=== PATIENT | female | born 1995 | race Two or more races ===

== ENCOUNTER 2024-10-18 00:32 | Emergency (ER) | payer SELFPAY ==
[2024-10-18 00:33] VITALS: BMI 45.3
[2024-10-18 00:39] VITALS: BP 136/74; PULSE 92; RESP 18; TEMP 37.2; O2SAT 99
--- NOTE | 2024-10-18 00:54 | XR_ITS ---
Examination: Complete OB ultrasound, less than 14 weeks, transabdominal Date and time of exam: October 18, 2024 0229 hrs. Indications: Pelvic cramping beginning today early by history Technique: Obstetrical ultrasound images less than 14 weeks performed via transabdominal imaging Findings: Uterus 10.7 x 4.8 x 4.6 cm anteverted Endometrial stripe 0.4 cm No uterine mass or intrauterine gestation Ovaries obscured by bowel gas Impression: Limited study No uterine mass or intrauterine gestation, recommend short-term follow-up transvaginal pelvic sonography as clinically warranted
--- NOTE | 2024-10-18 00:55 | PD.EDRME ---
Rapid Medical Screening Exam RME Arrival date/time: 10/18/24 00:32 28-year-old female 2 para 1 presents emergency department approximately 5 weeks presents emergency department complaining of pelvic cramping that started today. Chief Complaint: Abdominal Pain Time Seen by Provider: 10/18/24 00:44 Vital signs: Vital Signs Temperature 98.9 F 10/18/24 00:39 Pulse Rate 92 10/18/24 00:39 Respiratory Rate 18 10/18/24 00:39 Blood Pressure 136/74 H 10/18/24 00:39 Pulse Oximetry (%) 99 10/18/24 00:39 Oxygen Delivery Method Room Air 10/18/24 00:39 Vital signs reviewed by provider: Yes
[2024-10-18 01:17] LABS: Collection Type, Urine Clean Catch
[2024-10-18] MEDS: ONDANSETRON ODT 4 MG TABRAP PO (01:22)
[2024-10-18 01:40] LABS: Basophils % (Auto) 0 % (0-2.5); Eosinophils # (Auto) 0.1 Thou/mm3 (0.0-0.5); Eosinophils % (Auto) 1 % (0-10); Hematocrit 37.1 % (36.0-46.0); Immature Granulocytes % (Auto) 1 % (0-0); Immature Granulocytes Auto 0.07 Thou/mm3 (0.00-0.00); Lymphocytes # (Auto) 3.1 Thou/mm3 (1.0-4.8); Lymphocytes % (Auto) 30 % (10-50); Mean Corpuscular HGB Conc 32.3 g/dl (31.0-37.0); Mean Corpuscular Hemoglobin 26.5 pg (25.0-35.0); Mean Corpuscular Volume 82 fL (80-100); Monocytes # (Auto) 0.5 Thou/mm3 (0.0-0.8); Monocytes % (Auto) 5 % (0-12); Neutrophils # (Auto) 6.3 Thou/mm3 (1.8-7.7); Neutrophils % (Auto) 62 % (37-80); Nucleated Red Blood Cell % 0 /100 WBC (0); Platelet Count 324 Thou/mm3 (140-440); RDW Standard Deviation 44.6 fL (36.4-46.3); Red Blood Count 4.52 Miln/mm3 (4.00-5.20); White Blood Count 10.1 Thou/mm3 (3.6-11.0)
[2024-10-18 01:54] LABS: Amorphous Crystals,Urine Present (Absent); Bacteria,Urine 1+; Bilirubin,Urine Negative (Negative); Blood,Urine Negative (Negative); Clarity,Urine Turbid (Clear/Hazy); Color,Urine Yellow (Lt Yel-Yel); Culture Indicated,Urine Contaminated; Glucose, Urine Negative (Negative); Ketones,Urine Negative (Negative); Leukocyte Esterase,Urine Negative (Negative); Nitrite,Urine Negative (Negative); PH,Urine 6.5 (5.0-7.0); Protein,Urine Trace (Neg - Trace); RBC,Urine 7 /hpf (0-3); Specific Gravity,Urine 1.028 (1.001-1.035); Squamous Epithelial Cell,Urine 13 /hpf (0-5); WBC,Urine 2 /hpf (0-5)
[2024-10-18 01:56] LABS: Alanine Aminotransferase 68 U/L (10-49); Albumin, Serum 4.6 gm/dL (3.5-5.0); Albumin/Globulin Ratio 1.6 (1.2-2.2); Alkaline Phosphatase 99 U/L (46-116); Anion Gap 9 (7-16); Aspartate Amino Transferase 38 U/L (0-34); BUN/Creatinine Ratio 22 Ratio (12-20); Bilirubin,Total 0.4 mg/dL (0.3-1.2); Blood Urea Nitrogen 13 mg/dL (9-23); Calcium 9.3 mg/dL (8.3-10.6); Calcium (Corrected) 9.3 mg/dL (8.5-10.1); Carbon Dioxide 24.3 mMol/L (20.0-31.0); Chloride 105 mMol/L (98-107); Creatinine (Component) 0.6 mg/dL (0.6-1.3); Globulin 2.9 gm/dL (2.3-3.5); Glucose 98 mg/dL (74-106); Osmolality,Calculated 275 (275-295); Potassium 3.6 mMol/L (3.4-5.1); Sodium 138 mMol/L (136-145); Total Protein 7.5 gm/dL (5.7-8.2); eGFR > 60 See Note
[2024-10-18 02:08] LABS: Beta HCG,Quantitative 2080 mIU/mL (<5.0)
--- NOTE | 2024-10-18 03:21 | EDNOTE_ITS ---
<Statement entered by Dory Hines MD - 10/18/24 22:04> As co-signing physician, I was present and available for consult prn. I concur with the plan and care as documented by the midlevel provider. ED Abdominal Pain RME/HPI General Chief Complaint: Abdominal Pain Stated complaint: ABD CRAMPING Time seen by provider: 10/18/24 00:44 Arrival date/time: 10/18/24 00:32 28-year-old female 2 para 1 presents emergency department approximately 5 weeks presents emergency department complaining of pelvic cramping that started today. Source: patient Mode of arrival: ambulatory Limitations: no limitations RME / HPI RME / HPI narrative: 10/18/24 00:32 28-year-old female 2 para 1 presents emergency department approximately 5 weeks presents emergency department complaining of pelvic cramping that started today. Related Data Previous Rx's ?Medication ?Instructions ?Recorded acetaminophen 500 mg tablet 1,000 mg (2 x 500 mg) PO QID PRN 08/06/20 (Tylenol Extra Strength) pain #30 tabs ibuprofen 600 mg tablet 600 mg PO Q6H #30 tabs 08/06/20 Allergies Allergy/AdvReac Type Severity Reaction Status Date / Time No Known Allergies Allergy Verified 10/18/24 00:36 Review of Systems Review of Systems Systems Reviewed: All systems reviewed, normal except as documented Constitutional Constitutional: Reports system reviewed and no additional complaints, except as documented, Denies body ache(s), Denies chills and Denies fever(s) Eyes Eyes: Reports system reviewed and no additional complaints, except as documented and Denies change in vision ENT Ears, Nose, Mouth, and Throat: Reports system reviewed and no additional complaints, except as documented, Denies disequilibrium, Denies dizziness, Denies sore throat and Denies vertigo Cardiovascular Cardiovascular: Reports system reviewed and no additional complaints, except as documented, Denies chest pain and Denies dyspnea Respiratory Respiratory: Reports system reviewed and no additional complaints, except as documented, Denies chest congestion, Denies cough and Denies dyspnea Gastrointestinal Gastrointestinal: Reports system reviewed and no additional complaints, except as documented, Reports abdominal pain, Denies nausea and Denies vomiting Genitourinary Genitourinary: Reports pelvic pain Musculoskeletal Musculoskeletal: Reports system reviewed and no additional complaints, except as documented, Denies abnormal gait and Denies arthralgias Integumentary/Breasts Skin/Breast: Reports system reviewed and no additional complaints, except as documented, Denies erythema, Denies rash and Denies wounds Neurologic Neurologic: Reports system reviewed and no additional complaints, except as documented, Denies abnormal gait, Denies disequilibrium, Denies dizziness and Denies vertigo Past Medical History Past Medical History NEUROLOGIC: Negative Neurological Disorders CARDIAC: Positive Hypertension; Negative Cardiac Disorders or Congestive Heart Failure RESPIRATORY: Negative Chronic Obstructive Pulmonary Disease (COPD) or Asthma GASTROINTESTINAL: Positive Gall Bladder Disease and Obesity; Negative Gastrointestinal Disorders GENITOURINARY: Positive Genitourinary Disorders; Negative Renal Disease REPRODUCTIVE: Positive Previous Pregnancies MUSCULOSKELETAL: Negative Musculoskeletal Disorders ENDOCRINE: Negative Endocrine Disorders, Diabetes Mellitus Type 1 or Diabetes Mellitus Type 2 HEMATOLOGIC: Positive Anemia; Negative Blood Disorders or Sickle Cell Disease PSYCHO/SOCIAL: Positive Depression OTHER HISTORY: Negative Autoimmune Disease, Human Immunodeficiency Virus (HIV), Chicken Pox, Measles, Mumps, Rubella ([place] Measles), Pertussis or Clostridium Difficile Family History FAMILY HISTORY: Positive Family Psychiatric Problems; Negative Family Respiratory Disorders, Family Cardiac Disorders, Family Gastrointestinal Problems, Family Cancer, Family Surgery or Family Anesthesia Reaction Surgical History SURGICAL: Negative Section Social History SMOKING STATUS: Never smoker SECOND HAND EXPOSURE: No ED Exam General Limitations: Present no limitations General appearance: Present alert and in no apparent distress Head Head exam: Present atraumatic Eye Eye exam: Present normal appearance, PERRL and EOMI ENT ENT exam: Present normal exam, normal oropharynx and mucous membranes moist Neck Neck exam: Present normal inspection, full ROM and trachea midline Chest Chest inspection: Present normal inspection and symmetric chest wall rise Respiratory Respiratory exam: Present normal lung sounds bilaterally Cardiovascular Cardiovascular exam: Present regular rate, normal rhythm and normal heart sounds Abdominal Exam Abdominal exam: Present soft and normal bowel sounds; Absent tenderness Extremities Exam Extremities exam: Present normal inspection and full ROM Back Exam Back exam: Present normal inspection and full ROM Neurological Exam Neurological exam: Present alert, oriented X3 and CN II-XII intact Psychiatric Psychiatric exam: Present normal affect and normal mood Skin Skin exam: Present warm, dry, intact and normal color Course Quality Measures none Orders Category Date Time Status US OB <= 14 weeks fetus Stat Exams 10/18/24 00:54 Ordered ABO/RH Type Stat Lab 10/18/24 01:24 Completed Beta HCG,Quantitative Stat Lab 10/18/24 01:24 Completed CBC Stat Lab 10/18/24 01:24 Completed CMP [Comprehensive Metabolic Panel] Stat Lab 10/18/24 01:24 Completed Urinalysis, C/S if Indicated Stat Lab 10/18/24 01:05 Completed Ondansetron Odt [Zofran Odt] Med 10/18/24 01:12 Discontinued 4 mg PO X1 ONE Vital Signs Vital signs: Vital Signs Temperature 98.9 F 10/18/24 00:39 Pulse Rate 92 10/18/24 00:39 Respiratory Rate 18 10/18/24 00:39 Blood Pressure 136/74 H 10/18/24 00:39 Pulse Oximetry (%) 99 10/18/24 00:39 Oxygen Delivery Method Room Air 10/18/24 00:39 99% room air within normal limits Abdominal Pain MDM MDM Narrative MDM Narrative:: 28-year-old female 2 para 1 presents emergency department approximately 5 weeks presents emergency department complaining of pelvic cramping t hat started today. CBC was unremarkable for any leukocytosis. CMP was unremarkable for any elevated LFTs or gross electrolyte abnormalities. Beta-hCG 2080. Ultrasound unable to visualize intrauterine gestation but may be too early. Patient appears nontoxic and hemodynamically stable. Patient's abdomen is soft and nontender. Patient discharged instructed to follow-up with [facility] for repeat ultrasound and trend of beta-hCG levels. Instructed to return to emergency department for any worsening symptoms or as needed. Patient data External records reviewed:: [facility] previous records Clinical information provided by:: patient Social determinants that could affect healthcare access:: none Patient has the following chronic illnesses:: None How is presenting disease/condition affected by chronic disease/condition?: no chronic disease Evaluation data The following diagnostics were reviewed and interpreted by me:: lab results and radiology exam(s) Lab and/or radiology exams considered but not ordered:: Ordered Interpretation Summary: Interpreted by me Medications / Prescriptions Medications or Prescriptions considered but not ordered:: Ordered Medication administrations:: Medication Administration History Discontinued Medications Ondansetron HCl (Ondansetron Odt 4 Mg Tabrap) 4 mg PO X1 ONE; Protocol Stop: 10/18/24 01:13 Last Admin: 10/18/24 01:22 Dose: 4 mg Documented By: Given Consultations Consultation(s) initiated? (list below): No Diagnosis Differential diagnosis abdominal pain: abdominal pain, constipation, gastroenteritis and other (Miscarriage, ovarian torsion, ectopic ) Most likely diagnosis given after review of the tests above:: Abdominal pain during in first trimester Admission Indicated Admission indicated?: not indicated Admission Request Was there a request for admission?: No Disposition Plan Disposition Plan: Discharge Discharge Attestation Discharge Attestation: The patient and all family members were given an opportunity to ask questions and understood the discharge instructions. Discharge instructions specifically effects, indications for sooner follow up or return to the emergency department, and the expected course of current diagnosis. Patient condition: Stable Discharge Plan Plan Patient Disposition: HOME (Self Care) Disposition Comment: Stable Prescriptions/Referrals Prescriptions/Med Rec: No Action acetaminophen [Tylenol Extra Strength] 500 mg tablet 1,000 mg PO QID PRN (Reason: pain) Qty: 30 0RF ibuprofen 600 mg tablet 600 mg PO Q6H Qty: 30 0RF Referrals: No Primary/Family,Physician [Primary Care Provider] - In 1 week Problem List Clinical Impression: Abdominal pain during in first trimester Patient/Caregiver Discharge Instructions Education Materials: Abdominal Pain, ED Abdominal Pain Unkn Cause Fem Additional Instructions: Take [id number] Tylenol as needed for pain. Follow-up with [facility] in 24 to 48 hours. Return to emergency department for any worsening symptoms or as needed. Print Language: Yi Stand Alone Forms: Viviane Award Info., Patient Portal Info Letter KERRY/NGUYEN Supervising Physician KERRY/NGUYEN Supervising Physician: Dr. Hines
[2024-10-18 03:41] VITALS: RESP 18
--- NOTE | 2024-10-18 04:32 | PRELIM_ITS ---
Pelvic ultrasound (transabdominal and transvaginal). October 18, 2024 at 0229 hours Clinical history : Early viability.Technique: Real-time, grayscale, transabdominal and transvaginal pe lvic ultrasound was performed using Duplex scanning including arterial inflow, venous outflow, color and spectral Doppler.Comparison: No prior study is available for comparison. Findings: Uterus is 10.7 x 4.8 x 4.6 cm. The ovaries are not identified. Endometrium is 4 mm thick. No free fluid. No intra o r extrauterine gestational sac is identified. No pelvic cyst or mass is seen.Impression: 1. Limited b y transabdominal technique. Consider further evaluation with transvaginal pelvic ultrasound.2. No int ra-or extrauterine gestation is identified.3. Nonvisualized ovaries. Report Electronically Signed By: Reuben Beltran 10/18/2024 4:31:46 AM [EST]
== END 2024-10-18 03:41 | disposition home or self-care (01) ==
PROVIDERS: Emergency Provider Emergency Medicine
DX: O26.891 Other specified pregnancy related conditions, first trimester (principal); R10.2 Pelvic and perineal pain; Z3A.01 Less than 8 weeks gestation of pregnancy
CPT/HCPCS: 36415; 76801; 80053; 81001; 84702; 85025; 86900; 86901; 99284; Q0162

== ENCOUNTER 2024-12-07 05:18 | Emergency (ER) | payer OTHER, SELFPAY ==
[2024-12-07 05:19] VITALS: BMI 43.4
[2024-12-07 06:28] VITALS: BP 137/83; PULSE 96; RESP 17; TEMP 37.2; O2SAT 96
--- NOTE | 2024-12-07 06:34 | XR_ITS ---
Examination: PA chest single view Technique: Upright PA chest single view Exam date and time: December 07, 2024 0709 hrs. Comparison April 19, 2023 Indications: Coughing beginning 2 days ago. Findings: Normal heart size No lobar pneumonia or pulmonary edema The osseous structures are intact Impression: No lobar pneumonia identified
--- NOTE | 2024-12-07 07:53 | EDNOTE_ITS ---
Upper Respiratory Inf. RME/HPI General Chief Complaint: Flu Like Symptoms Stated Complaint: COUGH X 2 DAYS Time Seen by Provider: 12/07/24 05:23 Arrival date/time: 12/07/24 05:18 29-year-old female approximately 8 weeks presents the emergency department complaints of cough and congestion ongoing x 2 days patient reports that she recently got a new dog and perhaps she believes it may be related to the dog Limitations: no limitations Related Data Previous Rx's ?Medication ?Instructions ?Recorded acetaminophen 500 mg tablet 1,000 mg (2 x 500 mg) PO QID PRN 08/06/20 (Tylenol Extra Strength) pain #30 tabs ibuprofen 600 mg tablet 600 mg PO Q6H #30 tabs 08/06/20 dextromethorphan HBr 15 mg/5 mL 30 mg (10 mL) PO Q8H PRN cough 12/07/24 oral liquid #118 mL diphenhydramine HCl 25 mg capsule 25 mg PO Q8H PRN allergic symptoms 12/07/24 (Benadryl) #30 caps Allergies Allergy/AdvReac Type Severity Reaction Status Date / Time No Known Allergies Allergy Verified 12/07/24 05:21 Review of Systems Review of Systems Systems Reviewed: All systems reviewed, normal except as documented Constitutional Constitutional: Reports system reviewed and no additional complaints, except as documented, Denies body ache(s), Denies fever(s) and Denies headache(s) Eyes Eyes: Reports system reviewed and no additional complaints, except as documented and Denies blurry vision ENT Ears, Nose, Mouth, and Throat: Reports system reviewed and no additional complaints, except as documented, Denies headache(s), Reports nasal congestion and Reports nasal discharge Cardiovascular Cardiovascular: Reports system reviewed and no additional complaints, except as documented, Denies chest pain and Denies dyspnea Respiratory Respiratory: Reports system reviewed and no additional complaints, except as documented, Reports chest congestion, Reports cough and Denies dyspnea Gastrointestinal Gastrointestinal: Reports system reviewed and no additional complaints, except as documented and Denies abdominal pain Integumentary/Breasts Skin/Breast: Reports system reviewed and no additional complaints, except as documented and Denies rash Neurologic Neurologic: Reports system reviewed and no additional complaints, except as documented, Reports as per HPI and Denies headache(s) Past Medical History Past Medical History NEUROLOGIC: Negative Neurological Disorders CARDIAC: Positive Hypertension; Negative Cardiac Disorders or Congestive Heart Failure RESPIRATORY: Negative Chronic Obstructive Pulmonary Disease (COPD) or Asthma GASTROINTESTINAL: Positive Gall Bladder Disease and Obesity; Negative Gastrointestinal Disorders GENITOURINARY: Positive Genitourinary Disorders; Negative Renal Disease REPRODUCTIVE: Positive Previous Pregnancies MUSCULOSKELETAL: Negative Musculoskeletal Disorders ENDOCRINE: Negative Endocrine Disorders, Diabetes Mellitus Type 1 or Diabetes M ellitus Type 2 HEMATOLOGIC: Positive Anemia; Negative Blood Disorders or Sickle Cell Disease PSYCHO/SOCIAL: Positive Depression OTHER HISTORY: Negative Autoimmune Disease, Human Immunodeficiency Virus (HIV), Chicken Pox, Measles, Mumps, Rubella ([place] Measles), Pertussis or Clostridium Difficile Family History FAMILY HISTORY: Positive Family Psychiatric Problems; Negative Family Respiratory Disorders, Family Cardiac Disorders, Family Gastrointestinal Problems, Family Cancer, Family Surgery or Family Anesthesia Reaction Surgical History SURGICAL: Negative Section Social History SMOKING STATUS: Never smoker SECOND HAND EXPOSURE: No ED Exam General Limitations: Present no limitations General appearance: Present alert and in no apparent distress Head Head exam: Present atraumatic, normocephalic and normal inspection Eye Eye exam: Present normal appearance, PERRL and EOMI; Absent conjunctival injection ENT ENT exam: Present normal exam, normal oropharynx and mucous membranes moist Neck Neck exam: Present normal inspection, full ROM and trachea midline Chest Chest inspection: Present normal inspection and symmetric chest wall rise Respiratory Respiratory exam: Present normal lung sounds bilaterally; Absent respiratory distress, wheezes, stridor, accessory muscle use or prolonged expiratory phase Cardiovascular Cardiovascular exam: Present regular rate, normal rhythm and normal heart sounds Abdominal Exam Abdominal exam: Present soft and normal bowel sounds; Absent distention, tenderness, guarding, rebound or rigidity Extremities Exam Extremities exam: Present normal inspection and full ROM Back Exam Back exam: Present normal inspection and full ROM Neurological Exam Neurological exam: Present alert, oriented X3, CN II-XII intact, normal gait and reflexes normal; Absent motor sensory deficit Psychiatric Psychiatric exam: Present normal affect and normal mood Skin Skin exam: Present warm, dry, intact and normal color Course Quality Measures none Orders Category Date Time Status Bedside Influenza A&B Antigen Test NOW Care 12/07/24 06:34 Completed XR chest 1V Stat Exams 12/07/24 06:34 Completed Vital Signs Vital signs: Vital Signs Temperature 99.0 F 12/07/24 06:28 Pulse Rate 96 12/07/24 06:28 Respiratory Rate 17 12/07/24 06:28 Blood Pressure 137/83 H 12/07/24 06:28 Pulse Oximetry (%) 96 12/07/24 06:28 Oxygen Delivery Method Room Air 12/07/24 06:28 o2 sat 96% r/ wnl Upper Respiratory Infection MDM Narrative MDM Narrative:: 29-year-old female approximately 8 weeks presents the emergency department complaints of cough and congestion ongoing x 2 days patient reports that she recently got a new dog and perhaps she believes it may be related to the dog Patient reports no vaginal bleeding no pelvic pain or abdominal pain On exam patient well-appearing patient's not appear ill or toxic patient does not appear in acute distress patient is no difficulty breathing no difficulty swallowing Patient checked for flu and a chest x-ray was obtained flu is negative chest x- ray unremarkable Patient be discharged home with cough medicine and Benadryl Patient discharged home in no distress to follow-up with primary care doctor in the next 24 to 48 hours and for any worsening symptoms to return to the ER immediately Patient data External records reviewed:: [facility] previous records Clinical information provided by:: patient Social determinants that could affect healthcare access:: none Patient has the following chronic illnesses:: None How is presenting disease/condition affected by chronic disease/condition?: no chronic disease Evaluation data The following diagnostics were reviewed and interpreted by me:: lab results and radiology exam(s) Lab and/or radiology exams considered but not ordered:: Labs and radiology obtained Interpretation Summary: Reviewed by me Medications / Prescriptions Medications or Prescriptions considered but not ordered:: Given Medication administrations:: Given Consultations Consultation(s) initiated? (list below): No Diagnosis Upper Respiratory Differential Diagnosis: upper respiratory infection, s inusitis, viral infection, bronchitis and pharyngitis Most likely diagnosis given after review of the tests above:: URI Admission Indicated Admission indicated?: not indicated Admission Request Was there a request for admission?: No Disposition Plan Disposition Plan: Discharge Discharge Attestation Discharge Attestation: The patient and all family members were given an opportunity to ask questions and understood the discharge instructions. Discharge instructions specifically effects, indications for sooner follow up or return to the emergency department, and the expected course of current diagnosis. Patient condition: Stable Discharge Plan Plan Patient Disposition: HOME (Self Care) Disposition Comment: Stable Prescriptions/Referrals Prescriptions/Med Rec: New diphenhydramine HCl [Benadryl] 25 mg capsule 25 mg PO Q8H PRN (Reason: allergic symptoms) Qty: 30 0RF dextromethorphan HBr 15 mg/5 mL liquid 30 mg PO Q8H PRN (Reason: cough) Qty: 118 0RF No Action acetaminophen [Tylenol Extra Strength] 500 mg tablet 1,000 mg PO QID PRN (Reason: pain) Qty: 30 0RF ibuprofen 600 mg tablet 600 mg PO Q6H Qty: 30 0RF Referrals: No Primary/Family,Physician [Primary Care Provider] - 12/08/24 Problem List Clinical Impression: Cough Patient/Caregiver Discharge Instructions Additional Instructions: Please follow up with your primary care doctor in the next 24-48hrs for any worsening symptoms return here immediately Print Language: Mongolian Stand Alone Forms: Viviane Award Info., Patient Portal Info Letter PA/INSURANCE CLAIM REPRESENTATIVE Supervising Physician PA/NGUYEN Supervising Physician: Dr sosa
== END 2024-12-07 08:00 | disposition home or self-care (01) ==
PROVIDERS: Emergency Provider Emergency Medicine
DX: O26.891 Other specified pregnancy related conditions, first trimester (principal); R05.9 Cough, unspecified; R09.81 Nasal congestion; Z3A.08 8 weeks gestation of pregnancy
CPT/HCPCS: 71045; 87400; 99283

== ENCOUNTER 2024-12-17 08:49 | Emergency (ER) | payer OTHER, SELFPAY ==
[2024-12-17 09:03] VITALS: BP 139/96; PULSE 114; RESP 22; TEMP 37.4; O2SAT 97; BMI 44.9
--- NOTE | 2024-12-17 09:22 | EDNOTE_ITS ---
ED SOB =RME/HPI General Chief Complaint: Shortness of Breath/Dyspnea Stated Complaint: PNA, SOB X 2 days, 13 weeks OB, rash Time Seen by Provider: 12/17/24 09:17 Source: patient Arrival date/time: 12/17/24 08:49 29-year-old female with no known medical history presents to the emergency room with a chief complaint of shortness of breath x 2 days, and a generalized rash to her left upper shoulder. Patient is currently 13 weeks and denies any OB complaints. Patient was prescribed antibiotics by her primary care provider for her pneumonia diagnosis. Mode of arrival: ambulatory Limitations: no limitations Related Data Previous Rx's ?Medication ?Instructions ?Recorded acetaminophen 500 mg tablet 1,000 mg (2 x 500 mg) PO Q ID PRN 08/06/20 (Tylenol Extra Strength) pain #30 tabs ibuprofen 600 mg tablet 600 mg PO Q6H #30 tabs 08/06 dextromethorphan HBr 15 mg/5 mL 30 mg (10 mL) PO Q8H P RN cough 12/07/24 oral liquid #118 mL diphenhydramine HCl 25 mg capsule 25 mg PO Q8H PRN all ergic symptoms 12/07/24 (Benadryl) #30 caps Allergies Allergy/AdvReac Type Severity Reaction Status Date / Time No Known Allergies Allergy Verified 12/07/24 05:21 Review of Systems Review of Systems Systems Reviewed: All systems reviewed, normal except as documented Constitutional Constitutional: Reports system reviewed and no additional complaints, except as documented, Denies fatigue, Denies fever(s), Denies headache(s) and Reports weakness Eyes Eyes: Reports system reviewed and no additional complaints, except as documented, Denies blurry vision and Denies change in vision ENT Ears, Nose, Mouth, and Throat: Reports system reviewed and no additional complaints, except as documented, Denies otalgia, Denies headache(s), Denies nasal congestion, Denies throat swelling and Denies vertigo Cardiovascular Cardiovascular: Reports system reviewed and no additional complaints, except as documented, Denies chest pain, Denies dyspnea and Denies dyspnea on exertion Respiratory Respiratory: Reports system reviewed and no additional complaints, except as documented, Reports chest congestion, Reports cough, Denies dyspnea, Denies dyspnea on exertion, Reports pain on inspiration and Reports wheezing Gastrointestinal Gastrointestinal: Reports system reviewed and no additional complaints, except as documented, Denies abdominal pain, Denies cramping, Denies nausea and Denies vomiting Genitourinary Genitourinary: Reports system reviewed and no additional complaints, except as documented Musculoskeletal Musculoskeletal: Reports system reviewed and no additional complaints, except as documented and Denies back pain Integumentary/Breasts Skin/Breast: Reports system reviewed and no additional complaints, except as documented and Denies wounds Neurologic Neurologic: Reports system reviewed and no additional complaints, except as documented, Denies confusion, Denies headache(s), Denies lack of coordination, Denies vertigo and Reports weakness Psychiatric Psychiatric: Reports system reviewed and no additional complaints, except as documented, Denies anxiety, Denies confusion, Denies depression, Denies paranoia, Denies suicidal ideation and Denies tactile hallucinations Endocrine Endocrine: Reports system reviewed and no additional complaints, except as documented and Denies fatigue Hematologic/Lymphatic Hematologic/Lymphatic: Reports system reviewed and no additional complaints, except as documented and Denies lymphadenopathy Allergic/Immunologic Allergic/Immunologic: Reports system reviewed and no additional complaints, except as documented, Denies throat swelling, Denies urticaria and Reports wheezing Past Medical History Past Medical History NEUROLOGIC: Negative Neurological Disorders CARDIAC: Positive Hypertension; Negative Cardiac Disorders or Congestive Heart Failure RESPIRATORY: Negative Chronic Obstructive Pulmonary Disease (COPD) or Asthma GASTROINTESTINAL: Positive Gall Bladder Disease and Obesity; Negative Gastrointestinal Disorders GENITOURINARY: Positive Genitourinary Disorders; Negative Renal Disease REPRODUCTIVE: Positive Previous Pregnancies MUSCULOSKELETAL: Negative Musculoskeletal Disorders ENDOCRINE: Negative Endocrine Disorders, Diabetes Mellitus Type 1 or Diabetes Mellitus Type 2 HEMATOLOGIC: Positive Anemia; Negative Blood Disorders or Sickle Cell Disease PSYCHO/SOCIAL: Positive Depression OTHER HISTORY: Negative Autoimmune Disease, Human Immunodeficiency Virus (HIV), Chicken Pox, Measles, Mumps, Rubella (Tajik Measles), Pertussis or Clostridium Difficile Family History FAMILY HISTORY: Positive Family Psychiatric Problems; Negative Family Respiratory Disorders, Family Cardiac Disorders, Family Gastrointestinal Problems, Family Cancer, Family Surgery or Family Anesthesia Reaction Surgical History SURGICAL: Negative Section Social History SMOKING STATUS: Never smoker SECOND HAND EXPOSURE: No ED Exam General Limitations: Present no limitations General appearance: Present alert and in no apparent distress Head Head exam: Present atraumatic Eye Eye exam: Present normal appearance, PERRL and EOMI ENT ENT exam: Present normal exam, normal oropharynx and mucous membranes moist Neck Neck exam: Present normal inspection, full ROM and trachea midline Chest Chest inspection: Present normal inspection and symmetric chest wall rise Respiratory Respiratory exam: Present normal lung sounds bilaterally and wheezes; Absent respiratory distress, stridor, accessory muscle use or prolonged expiratory phase Expanded Respiratory Exam Location: Right: wheezes and Upper: wheezes Cardiovascular Cardiovascular exam: Present regular rate, normal rhythm and normal heart sounds Abdominal Exam Abdominal exam: Present soft and normal bowel sounds Extremities Exam Extremities exam: Present normal inspection and full ROM Back Exam Back exam: Present normal inspection and full ROM Neurological Exam Neurological exam: Present alert, oriented X3 and CN II-XII intact Psychiatric Psychiatric exam: Present normal affect and normal mood Skin Skin exam: Present warm, dry, intact and normal color Course Quality Measures none Orders Category Date Time Status Acetaminophen Tab [Tylenol Tab] Med 12/17/24 09:16 Discontinued 650 mg PO X1 ONE Albuterol/Ipratr Rt Ne [Duoneb Rt Ne] Med 12/17/24 09:16 Discontinued 3 ml INH X1 ONE Vital Signs Vital signs: Vital Signs Temperature 99.4 F 12/17/24 09:03 Pulse Rate 114 H 12/17/24 09:03 Respiratory Rate 22 H 12/17/24 09:03 Blood Pressure 139/96 H 12/17/24 09:03 Pulse Oximetry (%) 97 12/17/24 09:03 Oxygen Delivery Method Room Air 12/17/24 09:03 O2 saturation 97% within normal limits Shortness of Breath / Dyspnea MDM Narrative MDM Narrative:: 29-year-old female with no known medical history presents to the emergency room with a chief complaint of shortness of breath x 2 days, and a generalized rash to her left upper shoulder. Patient is currently 13 weeks and denies any OB complaints. Patient was prescribed antibiotics by her primary care provider for her pneumonia diagnosis. Patient is hemodynamically stable and in no apparent distress. She is afebrile and O2 saturation is 97% on room air. Her work of breathing is regular and there is no accessory muscle use. Lung sounds have some wheezing to the right upper lobes. Patient is currently 13 weeks she denies any vaginal bleeding pelvic pain or any OB complaints. Patient has a diagnosis of pneumonia and is taking azithromycin and amoxicillin. The patient has a rash to her left upper shoulder area. The rash is erythemic and macular and patient states it has significantly gotten better since yesterday. I spoke to the patient that this rash is due to the amoxicillin and it is a side effect that can sometimes accompany this medication. Patient is also taking azithromycin so I told patient that it is okay to stop taking her amoxicillin and just continue taking azithromycin. I spoke to the patient all of her signs and symptoms are related to her pneumonia and she is on the correct course of antibiotics to help her with her diagnosis. A breathing treatment was given to the patient for comfort. Patient was discharged and educated to follow-up with her primary care provider and return to the emergency room for any evidence of worsening signs or symptoms Patient data External records reviewed:: [facility] previous records Clinical information provided by:: patient Social determinants that could affect healthcare access:: none Patient has the following chronic illnesses:: No chronic illness How is presenting disease/condition affected by chronic disease/condition?: no chronic disease Evaluation data The following diagnostics were reviewed and interpreted by me:: lab results and radiology exam(s) Lab and/or radiology exams considered but not ordered:: Labs and radiology exams considered and ordered Interpretation Summary: N/A Medications / Prescriptions Medications or Prescriptions considered but not ordered:: Medication given Medication administrations:: Medication Administration History Discontinued Medications Acetaminophen (Acetaminophen 325 Mg Tablet) 650 mg PO X1 ONE Stop: 12/17/24 09:17 Last Admin: 12/17/24 10:03 Dose: 650 mg Documented By: [facility] Albuterol/Ipratropium (Albuterol/Ipratropium (Duoneb) Rt Ne 3 Ml Nebu) 3 ml INH X1 ONE Stop: 12/17/24 09:17 Last Admin: 12/17/24 09:44 Dose: 3 ml Documented By: BA Medication given Consultations Consultation(s) initiated? (list below): No Diagnosis Shortness of Breath Differential Diagnosis: community acquired pneumonia and asthma with exacerbation Most likely diagnosis given after review of the tests above:: Community-acquired pneumonia Admission Indicated Admission indicated?: not indicated Admission Request Was there a request for admission?: No Disposition Plan Disposition Plan: Discharge Discharge Attestation Discharge Attestation: The patient and all family members were given an opportunity to ask questions and understood the discharge instructions. Discharge instructions specifically effects, indications for sooner follow up or return to the emergency department, and the expected course of current diagnosis. Patient condition: Stable Discharge Plan Plan Patient Disposition: HOME (Self Care) Disposition Comment: Stable Prescriptions/Referrals Prescriptions/Med Rec: No Action acetaminophen [Tylenol Extra Strength] 500 mg tablet 1,000 mg PO QID PRN (Reason: pain) Qty: 30 0RF ibuprofen 600 mg tablet 600 mg PO Q6H Qty: 30 0RF diphenhydramine HCl [Benadryl] 25 mg capsule 25 mg PO Q8H PRN (Reason: allergic symptoms) Qty: 30 0RF dextromethorphan HBr 15 mg/5 mL liquid 30 mg PO Q8H PRN (Reason: cough) Qty: 118 0RF Referrals: FREEMAN SMITH [Primary Care Provider] - In 1 week Problem List Clinical Impression: Community acquired pneumonia Patient/Caregiver Discharge Instructions Education Materials: ED Pneumonia (Adult) Additional Instructions: Please follow-up with your primary care provider in the next 24 to 48 hours. You are currently on the correct antibiotics. Please continue to take your antibiotics as prescribed by your primary care provider. Please take Tylenol for fever management. Please increase your oral fluid intake. For any evidence of worsening signs or symptoms please return to the emergency room immediately Print Language: Japanese Stand Alone Forms: Viviane Award Info., Patient Portal Info Letter PA/SKETCH MAKER Supervising Physician PA/SKETCH MAKER Supervising Physician: Dr. Patel
[2024-12-17] MEDS: ALBUTEROL/IPRATROPIUM (Duoneb) RT SOL 3 ML NEBU INH (09:44)
[2024-12-17 09:50] VITALS: PULSE 100; RESP 20; O2SAT 97
[2024-12-17 10:03] VITALS: TEMP 37.4
[2024-12-17] MEDS: ACETAMINOPHEN 325 MG TABLET 650 MG PO (10:03)
== END 2024-12-17 10:13 | disposition home or self-care (01) ==
PROVIDERS: Emergency Provider Emergency Medicine; PCP Nurse Practitioner Family
DX: O99.511 Diseases of the respiratory system complicating pregnancy, first trimester (principal); J18.9 Pneumonia, unspecified organism; Z3A.13 13 weeks gestation of pregnancy
CPT/HCPCS: 94640; 99283; A9270

== ENCOUNTER → 2024-12-21 | Outpatient (CLI) | payer OTHER, SELFPAY ==
--- NOTE | 2024-12-21 16:05 | XR_ITS ---
Examination: PA lateral chest 2 views TECHNIQUE: Upright PA lateral chest 2 views Exam date and time: December 21, 2024 at 1623 hours INDICATIONS: Coughing congestion 2 weeks FINDINGS: Significant left lower lobe pneumonia Normal heart size No pulmonary edema IMPRESSION: Significant left lower lobe pneumonia
== END | disposition home or self-care (01) ==
LOC: CDIM 15:55
PROVIDERS: PCP Nurse Practitioner Family; Referring Provider Physician Assistant Medical; Visit Provider Physician Assistant Medical
DX: Z34.81 Encounter for supervision of other normal pregnancy, first trimester (principal); J18.9 Pneumonia, unspecified organism
CPT/HCPCS: 71046

== ENCOUNTER → 2024-12-21 | Outpatient (CLI) | payer OTHER, SELFPAY ==
[2024-12-21 15:15] LABS: Coccid Serology, CF (UCD)* See Sep Rpt; Collection Type, Urine Clean Catch
[2024-12-21 16:28] LABS: Basophils % (Auto) 0 % (0-2.5); Eosinophils # (Auto) 0.1 Thou/mm3 (0.0-0.5); Eosinophils % (Auto) 1 % (0-10); Hematocrit 40.1 % (36.0-46.0); Hemoglobin 12.9 g/dL (12.0-16.0); Immature Granulocytes % (Auto) 1 % (0-0); Immature Granulocytes Auto 0.15 Thou/mm3 (0.00-0.00); Lymphocytes # (Auto) 2.1 Thou/mm3 (1.0-4.8); Lymphocytes % (Auto) 19 % (10-50); Mean Corpuscular HGB Conc 32.2 g/dl (31.0-37.0); Mean Corpuscular Hemoglobin 26.7 pg (25.0-35.0); Mean Corpuscular Volume 83 fL (80-100); Monocytes # (Auto) 0.4 Thou/mm3 (0.0-0.8); Monocytes % (Auto) 4 % (0-12); Neutrophils # (Auto) 8.3 Thou/mm3 (1.8-7.7); Neutrophils % (Auto) 75 % (37-80); Nucleated Red Blood Cell % 0 /100 WBC (0); Platelet Count 453 Thou/mm3 (140-440); RDW Standard Deviation 43.9 fL (36.4-46.3); Red Blood Count 4.83 Miln/mm3 (4.00-5.20); White Blood Count 11.1 Thou/mm3 (3.6-11.0)
[2024-12-21 16:39] LABS: Amphetamine/Methamp Scrn,U Negative (Negative); Barbiturate Screen,Urine Negative (Negative); Benzodiazepines Screen,Urine Negative (Negative); Benzoylecgonine Screen, Ur Negative (Negative); Fentanyl Screen,Urine Negative (Negative); Opiate Screen,Urine Negative (Negative); THC Screen,Urine Negative (Negative)
[2024-12-21 16:43] LABS: Creatinine (Component) 0.4 mg/dL (0.6-1.3); Glucose 62 mg/dL (74-106); eGFR > 60 See Note
[2024-12-21 16:53] LABS: Amorphous Crystals,Urine Present (Absent); Bilirubin,Urine Negative (Negative); Blood,Urine Negative (Negative); Clarity,Urine Turbid (Clear/Hazy); Color,Urine Yellow (Lt Yel-Yel); Glucose, Urine Negative (Negative); Ketones,Urine 1+ (Negative); Leukocyte Esterase,Urine Negative (Negative); Nitrite,Urine Negative (Negative); PH,Urine 6.5 (5.0-7.0); Protein,Urine 1+ (Neg - Trace); RBC,Urine 6 /hpf (0-3); Specific Gravity,Urine 1.028 (1.001-1.035); Squamous Epithelial Cell,Urine 25 /hpf (0-5); Urobilinogen,Urine Negative mg/dL (0.0-1.0); WBC,Urine 1 /hpf (0-5)
[2024-12-21 16:56] LABS: Hepatitis B Surface Antigen Non Reactive (Non React); Rubella, IgG Antibody Reactive (Immune)
[2024-12-21 16:59] LABS: Glucose Estimated Average 100 mg/dL (80-131); Hemoglobin A1C 5.1 % Hgb (4.8-6.0)
[2024-12-21 17:02] LABS: HIV (1&2) Antibody Rapid Non-Reactive
[2024-12-21 17:27] LABS: Beta HCG,Quantitative 67215 mIU/mL (<5.0)
[2024-12-22 08:39] LABS: BVAG Candida Positive (Negative); Bacterial Vaginosis Markers Positive (Negative); Candida glabrata Positive (Negative); Candida krusei PCR Negative (Negative); Trichomonas Negative (Negative)
[2024-12-24 17:51] LABS: HCV RNA, PCR <15 NOT DETECTED IU/mL
[2024-12-27 06:42] LABS: HCV RNA, PCR Log IU <1.18 NOT DETECTED Log IU/mL; HIV Ag/Ab, 4th Gen NON-REACTIVE
== END | disposition home or self-care (01) ==
PROVIDERS: Referring Provider Physician Assistant Medical; Visit Provider Physician Assistant Medical
DX: Z34.81 Encounter for supervision of other normal pregnancy, first trimester (principal); J18.9 Pneumonia, unspecified organism
CPT/HCPCS: 36415; 80307; 81001; 81514; 82565; 82947; 83036; 84702; 85025; 86171; 86703; 86762; 86850; 86900; 86901; 87077; 87086; 87186; 87340; 87389; 87522

== ENCOUNTER → 2025-01-27 | Outpatient (CLI) | payer OTHER, SELFPAY | END | disposition home or self-care (01) | LOC: SLDO 15:39 | PROVIDERS: Referring Provider Physician Assistant Medical; Visit Provider Physician Assistant Medical | DX: N39.0 Urinary tract infection, site not specified (principal) | CPT/HCPCS: 87077; 87086; 87186 ==

== ENCOUNTER → 2025-03-22 | Outpatient (CLI) | payer OTHER, SELFPAY ==
[2025-03-22 17:07] LABS: Glucose,1 Hour PP 50gm Dose 87 mg/dL (80-140)
== END | disposition home or self-care (01) ==
LOC: SLDO 14:25
PROVIDERS: PCP Physician Assistant Medical; Referring Provider Physician Assistant Medical; Visit Provider Physician Assistant Medical
DX: Z34.82 Encounter for supervision of other normal pregnancy, second trimester (principal)
CPT/HCPCS: 36415; 82950

== ENCOUNTER 2025-04-04 17:05 | Observation (INO) | payer OTHER, SELFPAY ==
[2025-04-04] VITALS (14 sets, daily range): BP systolic 129; BP diastolic 61; PULSE 96–117; RESP 18–99; TEMP 37; O2SAT 98–100; BMI 48.8
[2025-04-04 17:45] LABS: Collection Type, Urine Clean Catch
[2025-04-04 17:57] LABS: Bilirubin,Urine Negative (Negative); Blood,Urine Negative (Negative); Clarity,Urine Clear (Clear/Hazy); Color,Urine Yellow (Lt Yel-Yel); Glucose, Urine Negative (Negative); Ketones,Urine Trace (Negative); Leukocyte Esterase,Urine Negative (Negative); Nitrite,Urine Negative (Negative); PH,Urine 6.5 (5.0-7.0); Protein,Urine Trace (Neg - Trace); RBC,Urine 2 /hpf (0-3); Specific Gravity,Urine 1.026 (1.001-1.035); Squamous Epithelial Cell,Urine 7 /hpf (0-5); Urobilinogen,Urine Negative mg/dL (0.0-1.0); WBC,Urine 2 /hpf (0-5)
--- NOTE | 2025-04-04 20:40 | PD.LDPN ---
Documentation for date of: 04/04/25 OB Labor Progress Note Pelvic Exam Dilation (cm): CLOSED Effacement (%): THICK Amniotic membrane status: Intact Contractions Monitor mode: External Contraction frequency: NONE Status status: Category l Assessment and Plan Comments: Triage Note Francia is a 29yo with SIUP at 29+wk presenting to L&D for abdominal cramping. No lof, no vaginal bleeding. Normal movement. Current : This is complicated by BMI (current 48.8) and hx of prior section, she has had regular OB care with her OBGYN ROS negative other than what was described above. Vitals wnl, afebrile General: well developed, well nourished, no acute distress, conversant Cardiac: normal heart rate Lungs: breathing without distress Abdomen: soft, gravid, non-tender, no rebound or guarding Extremities: no pain with palpation of calves SCE: closed/thick/high NST: Reassuring for gestational age, +accels, no decels, mod ajay [place]: No ctx pattern Urinalysis benign Assessment: Francia is a 29yo with SIUP at 29+wk with no evidence of pre-term labor based on SCE and toco. Vitals wnl, benign exam. Reassuring status. Plan: -Discussed findings and diagnosis with patient, answered all questions to their apparent satisfaction -Continue routine follow up with OBGYN -Discussed return precautions at length -Safe for discharge home at this time Tressa Moran MD
== END 2025-04-04 18:30 | disposition home or self-care (01) ==
PROVIDERS: Admitting Provider Obstetrics & Gynecology; Visit Provider Obstetrics & Gynecology
DX: O26.893 Other specified pregnancy related conditions, third trimester (principal); Z3A.29 29 weeks gestation of pregnancy; R10.9 Unspecified abdominal pain
CPT/HCPCS: 59025; 59899; 81001

== ENCOUNTER → 2025-04-05 | Outpatient (CLI) | payer OTHER, SELFPAY ==
[2025-04-05 16:43] LABS: Basophils % (Auto) 0 % (0-2.5); Eosinophils # (Auto) 0.1 Thou/mm3 (0.0-0.5); Eosinophils % (Auto) 1 % (0-10); Hematocrit 34.3 % (36.0-46.0); Hemoglobin 10.7 g/dL (12.0-16.0); Immature Granulocytes % (Auto) 1 % (0-0); Immature Granulocytes Auto 0.12 Thou/mm3 (0.00-0.00); Lymphocytes # (Auto) 2.1 Thou/mm3 (1.0-4.8); Lymphocytes % (Auto) 20 % (10-50); Mean Corpuscular HGB Conc 31.2 g/dl (31.0-37.0); Mean Corpuscular Hemoglobin 26.8 pg (25.0-35.0); Mean Corpuscular Volume 86 fL (80-100); Monocytes # (Auto) 0.6 Thou/mm3 (0.0-0.8); Monocytes % (Auto) 5 % (0-12); Neutrophils # (Auto) 7.8 Thou/mm3 (1.8-7.7); Neutrophils % (Auto) 73 % (37-80); Nucleated Red Blood Cell % 0 /100 WBC (0); Platelet Count 347 Thou/mm3 (140-440); White Blood Count 10.8 Thou/mm3 (3.6-11.0)
[2025-04-05 17:26] LABS: Syphilis Nonreactive (Nonreactive)
== END | disposition home or self-care (01) ==
LOC: SLDO 15:05
PROVIDERS: Referring Provider Physician Assistant Medical; Visit Provider Physician Assistant Medical
DX: Z34.83 Encounter for supervision of other normal pregnancy, third trimester (principal)
CPT/HCPCS: 36415; 85025; 86780; 87077; 87086; 87186

== ENCOUNTER → 2025-04-19 | Outpatient (CLI) | payer OTHER, SELFPAY ==
[2025-04-19 10:21] LABS: Basophils % (Auto) 0 % (0-2.5); Eosinophils # (Auto) 0.1 Thou/mm3 (0.0-0.5); Eosinophils % (Auto) 1 % (0-10); Hematocrit 33.5 % (36.0-46.0); Immature Granulocytes % (Auto) 1 % (0-0); Immature Granulocytes Auto 0.14 Thou/mm3 (0.00-0.00); Lymphocytes # (Auto) 1.9 Thou/mm3 (1.0-4.8); Lymphocytes % (Auto) 16 % (10-50); Mean Corpuscular HGB Conc 32.8 g/dl (31.0-37.0); Mean Corpuscular Volume 82 fL (80-100); Monocytes # (Auto) 0.5 Thou/mm3 (0.0-0.8); Monocytes % (Auto) 4 % (0-12); Neutrophils # (Auto) 9.3 Thou/mm3 (1.8-7.7); Neutrophils % (Auto) 78 % (37-80); Nucleated Red Blood Cell % 0 /100 WBC (0); Platelet Count 334 Thou/mm3 (140-440); RDW Standard Deviation 41.9 fL (36.4-46.3); Red Blood Count 4.08 Miln/mm3 (4.00-5.20); White Blood Count 11.9 Thou/mm3 (3.6-11.0)
[2025-04-19 10:41] LABS: Fibrinogen 523 mg/dL (175-375); Partial Thromboplastin Time 28.4 Seconds (22.0-36.0); Prothrombin Time 10.5 Seconds (9.0-12.2)
[2025-04-19 11:20] LABS: Alanine Aminotransferase 10 U/L (10-49); Albumin, Serum 3.9 gm/dL (3.5-5.0); Albumin/Globulin Ratio 1.4 (1.2-2.2); Alkaline Phosphatase 111 U/L (46-116); Anion Gap 13 (7-16); Aspartate Amino Transferase 14 U/L (0-34); BUN/Creatinine Ratio 15 Ratio (12-20); Bilirubin,Total 0.3 mg/dL (0.3-1.2); Blood Urea Nitrogen 6 mg/dL (9-23); Calcium 8.5 mg/dL (8.3-10.6); Calcium (Corrected) 8.6 mg/dL (8.5-10.1); Carbon Dioxide 22.2 mMol/L (20.0-31.0); Chloride 106 mMol/L (98-107); Creatinine (Component) 0.4 mg/dL (0.6-1.3); Globulin 2.8 gm/dL (2.3-3.5); Glucose 91 mg/dL (74-106); Osmolality,Calculated 278 (275-295); Sodium 141 mMol/L (136-145); Total Protein 6.7 gm/dL (5.7-8.2); Uric Acid 3.2 mg/dL (3.1-7.8); eGFR > 60 See Note
[2025-04-19 11:25] LABS: Creatinine,Random Urine 141 mg/dL (30-125); Protein Total, Random Urine 24 mg/dL (1-14)
== END | disposition home or self-care (01) ==
LOC: COPL 09:47
PROVIDERS: PCP Nurse Practitioner Family; Referring Provider Physician Assistant Medical; Visit Provider Physician Assistant Medical
DX: Z34.83 Encounter for supervision of other normal pregnancy, third trimester (principal)
CPT/HCPCS: 36415; 80053; 82570; 84156; 84550; 85025; 85384; 85610; 85730

== ENCOUNTER → 2025-04-20 | Outpatient (CLI) | payer OTHER, SELFPAY ==
[2025-04-20 18:07] LABS: Creatinine,Urine 109 mg/dL (30-125); Protein Total, Urine 19 mg/dL (1-14)
[2025-04-20 18:10] LABS: Creatinine, 24 Hour Urine 1.1 gm/24hr (0.6-1.8); Creatinine, Urine Volume 970 mL/24hr (600-1800); Protein Total, 24 hr Urine 184 mg/24hr (<149); Protein Total, Urine Volume 970 mL/24hr (600-1800)
== END | disposition home or self-care (01) ==
LOC: SLDO 16:59
PROVIDERS: Referring Provider Physician Assistant Medical; Visit Provider Physician Assistant Medical
DX: Z34.83 Encounter for supervision of other normal pregnancy, third trimester (principal)
CPT/HCPCS: 82570; 84156

== ENCOUNTER 2025-06-04 16:10 | Observation (INO) | payer OTHER, MEDICAID, SELFPAY ==
[2025-06-04] VITALS (26 sets, daily range): BP systolic 125–143; BP diastolic 60–75; PULSE 87–133; RESP 18–98; TEMP 36.8; O2SAT 97–99; BMI 51.5
[2025-06-04] MEDS: RINGERS LACTATED 1000 ML 1,000 ML 999 ML IV (17:13)
[2025-06-04 17:32] LABS: Basophils # (Auto) 0.0 Thou/mm3 (0.0-0.2); Basophils % (Auto) 0 % (0-2.5); Eosinophils # (Auto) 0.0 Thou/mm3 (0.0-0.5); Eosinophils % (Auto) 0 % (0-10); Hematocrit 33.6 % (36.0-46.0); Hemoglobin 11.1 g/dL (12.0-16.0); Immature Granulocytes Auto 0.15 Thou/mm3 (0.00-0.00); Lymphocytes # (Auto) 2.0 Thou/mm3 (1.0-4.8); Lymphocytes % (Auto) 16 % (10-50); Mean Corpuscular HGB Conc 33.0 g/dl (31.0-37.0); Mean Corpuscular Hemoglobin 26.4 pg (25.0-35.0); Mean Corpuscular Volume 80 fL (80-100); Monocytes # (Auto) 0.6 Thou/mm3 (0.0-0.8); Monocytes % (Auto) 5 % (0-12); Neutrophils # (Auto) 10.1 Thou/mm3 (1.8-7.7); Neutrophils % (Auto) 78 % (37-80); Nucleated Red Blood Cell # 0.00 Thou/mm3 (0.00-0.00); Nucleated Red Blood Cell % 0 /100 WBC (0); Platelet Count 361 Thou/mm3 (140-440); RDW Standard Deviation 45.8 fL (36.4-46.3); Red Blood Count 4.20 Miln/mm3 (4.00-5.20); White Blood Count 13.0 Thou/mm3 (3.6-11.0)
--- NOTE | 2025-06-04 18:24 | PC.NURSE ---
1823 discharge instructions reviewed, labor precautions, kick counts, copies given. pt agrees/understands.
--- NOTE | 2025-06-04 18:27 | ESPR_ITS ---
Documentation for date of: 06/04/25 OB Labor Progress Note Pelvic Exam Dilation (cm): ft Effacement (%): 0 station: -3 Amniotic membrane status: Intact Contractions Monitor mode: External Contraction frequency: 9, irritability Contraction intensity: Mild Status status: Category l Assessment and Plan Comments: Triage Note Francia is a 29yo with SIUP at 37+wk presenting to L&D for ctx/pelvic pressure. No lof, no vaginal bleeding. Normal movement. Current : This is complicated by BMI (current 51.6), hx of prior section, and borderline HTN . She has had regular OB care with Dr. Bailon's office. Planned RLTCS is scheduled at appropriate interval. ROS negative other than what was described above. BP normal to low mild range, pulse 120's (corrected to 100's after IVF), afebrile General: well developed, well nourished, no acute distress, conversant Cardiac: elevated heart rate Lungs: breathing without distress Abdomen: soft, gravid, non-tender, no rebound or guarding SCE: ft/thick/high (unchanged after 1 hour) NST: Reactive, bl 140, +accels, no decels, mod ajay [place]: irritability, occasional ctx Labs: Hgb 11.1 Assessment: Francia is a 29yo with SIUP at 37+wk with no evidence of labor based on SCE and toco. Vitals wnl, benign exam. Reassuring status. 1L IVF given for elevated pulse and uterine irritability (presume slight dehydration on presentation as cause)- pulse improved after IVF. Plan: -Continue routine follow up with OBGYN within 1 week -Discussed return precautions -Safe for discharge home at this time Tressa Moran MD
== END 2025-06-04 18:25 | disposition home or self-care (01) ==
PROVIDERS: Admitting Provider Obstetrics & Gynecology; Visit Provider Obstetrics & Gynecology
DX: O26.893 Other specified pregnancy related conditions, third trimester (principal); Z3A.37 37 weeks gestation of pregnancy; R10.2 Pelvic and perineal pain
CPT/HCPCS: 36415; 59899; 85025; J7120

== ENCOUNTER 2025-06-13 05:40 | Inpatient (IN) | payer OTHER, MEDICAID, SELFPAY ==
[2025-06-10 17:34] LABS: Basophils # (Auto) 0.0 Thou/mm3 (0.0-0.2); Basophils % (Auto) 0 % (0-2.5); Eosinophils # (Auto) 0.0 Thou/mm3 (0.0-0.5); Eosinophils % (Auto) 0 % (0-10); Hematocrit 33.8 % (36.0-46.0); Hemoglobin 11.3 g/dL (12.0-16.0); Immature Granulocytes Auto 0.14 Thou/mm3 (0.00-0.00); Lymphocytes # (Auto) 2.3 Thou/mm3 (1.0-4.8); Lymphocytes % (Auto) 15 % (10-50); Mean Corpuscular HGB Conc 33.4 g/dl (31.0-37.0); Mean Corpuscular Hemoglobin 26.7 pg (25.0-35.0); Mean Corpuscular Volume 80 fL (80-100); Monocytes # (Auto) 0.7 Thou/mm3 (0.0-0.8); Monocytes % (Auto) 5 % (0-12); Neutrophils # (Auto) 11.6 Thou/mm3 (1.8-7.7); Neutrophils % (Auto) 79 % (37-80); Nucleated Red Blood Cell # 0.00 Thou/mm3 (0.00-0.00); Nucleated Red Blood Cell % 0 /100 WBC (0); Platelet Count 350 Thou/mm3 (140-440); RDW Standard Deviation 46.2 fL (36.4-46.3); Red Blood Count 4.23 Miln/mm3 (4.00-5.20); White Blood Count 14.7 Thou/mm3 (3.6-11.0)
[2025-06-10 17:41] LABS: INR 0.9 (0.9-1.3); Partial Thromboplastin Time 26.7 Seconds (22.0-36.0); Prothrombin Time 10.3 Seconds (9.0-12.2)
[2025-06-10 17:59] LABS: Alanine Aminotransferase 8 U/L (10-49); Albumin, Serum 3.8 gm/dL (3.5-5.0); Albumin/Globulin Ratio 1.2 (1.2-2.2); Alkaline Phosphatase 150 U/L (46-116); Anion Gap 11 (7-16); Aspartate Amino Transferase 12 U/L (0-34); BUN/Creatinine Ratio 18 Ratio (12-20); Bilirubin,Total 0.3 mg/dL (0.3-1.2); Blood Urea Nitrogen 11 mg/dL (9-23); Calcium 9.1 mg/dL (8.3-10.6); Calcium (Corrected) 9.3 mg/dL (8.5-10.1); Carbon Dioxide 23.8 mMol/L (20.0-31.0); Chloride 104 mMol/L (98-107); Creatinine (Component) 0.6 mg/dL (0.6-1.3); Globulin 3.1 gm/dL (2.3-3.5); Glucose 100 mg/dL (74-106); Osmolality,Calculated 276 (275-295); Potassium 3.7 mMol/L (3.4-5.1); Sodium 139 mMol/L (136-145); Total Protein 6.9 gm/dL (5.7-8.2); eGFR > 60 See Note
[2025-06-10 18:12] LABS: Syphilis Nonreactive (Nonreactive)
--- NOTE | 2025-06-11 13:50 | ESHP_ITS ---
RE: MANOLO CUMMINGS : 1995 DATE OF ADMISSION: 06/13/2025 DATE OF SURGERY: 06/13/2025 HISTORY OF PRESENT ILLNESS: This is a 29-year-old 2, para 1-0-0-1 with due date of 06/20/2025 with intrauterine at 39 weeks who presents for repeat delivery. The patient denies any leaking or bleeding. She reports normal movement. She has occasional contractions. The patient had some borderline elevations of her blood pressure, but does not take any antihypertensive medication. She denies any headache, change in vision or right upper quadrant pain. ALLERGIES: AMOXICILLIN. MEDICATIONS: 1. multivitamin 1 p.o. daily. 2. Aspirin 81 mg 1 p.o. daily. 3. Ferrous sulfate 325 mg 1 p.o. daily. PAST MEDICAL HISTORY: Borderline chronic hypertension, gallstones, pneumonia, H. pylori, gastroesophageal reflux disease, obesity, iron deficiency anemia, urinary tract infection, and . SOCIAL HISTORY: She denies any alcohol, drug use, or smoking. FAMILY HISTORY: Denies. OBSTETRIC HISTORY: 2019, 39 weeks. delivery: 9 pound 9 ounce male. No complications. PAST SURGICAL HISTORY: delivery 2019. REVIEW OF SYSTEMS: As above. PHYSICAL EXAMINATION: VITAL SIGNS: Blood pressure 118/61, heart rate 88, respirations 18, temperature 98.2. HEENT: Oropharynx and sclerae are clear. LUNGS: Clear to auscultation bilaterally. HEART: Regular rate and rhythm. ABDOMEN: Gravid, term size. Old Pfannenstiel scar noted. EXTREMITIES: Nontender. SKIN: No gross rashes or lesions. NEUROLOGIC: No focal deficit. ASSESSMENT: Intrauterine at 39 weeks. Previous delivery. Elects repeat delivery. PLAN: Repeat delivery. Informed consent was obtained. The patient was made aware of the risks, complications, alternatives, and benefits of the proposed procedure and she agrees. DT: 12:55:11 TT: 13:48:00 Ref: [id number] - TID: [id number] MTDD
[2025-06-13] VITALS (17 sets, daily range): BP systolic 105–140; BP diastolic 52–79; PULSE 79–96; RESP 16–21; TEMP 36.4–37.1; O2SAT 96–100; BMI 52.0
[2025-06-13] MEDS: RINGERS LACTATED 1000 ML 1,000 ML 999 ML IV (06:24)
[2025-06-13] MEDS: FAMOTIDINE INJ 10 MG/ML VIAL 2 ML 20 MG IV (07:18)
[2025-06-13] MEDS: GENTAMICIN/NS 80 MG IVPB 80 MG/50 ML PIGGYBACK 50 MG IV (07:18)
[2025-06-13] MEDS: METOCLOPRAMIDE INJ 5 MG/ML VIAL 2 ML 10 MG IVP (07:19)
--- NOTE | 2025-06-13 08:29 | ESOP_ITS ---
Operative Note - EMERGENCY MANAGEMENT SYSTEM DIRECTOR Procedure Date of procedure: 06/13/25 Procedure Performed: Repeat Section via Pfannesteil Skin Incision. Indication: IUP 39w0d by best dates. Prior C/S Elects repeat C/S Pre-Op diagnosis: IUP 39w0d by best dates. Prior C/S Elects repeat C/S Post-Op diagnosis: IUP 39w0d by best dates. Prior C/S Elects repeat C/S Endometriosis Stage 1. Anesthesia type: Spinal Procedure description: After proper informed consent was obtained and the patient was made aware of the risks, complications, alternatives and benefits of the proposed procedure she was taken to the operating room where she underwent induction of spinal anesthesia. She was prepped and draped in the usual sterile fashion. A timeout was performed.? A Pfannenstiel skin incision was made with the scalpel and carried through to the underlying layer of fascia with the Bovie. The fascia was nicked in the midline incision and the incision was extended bilaterally with the Bovie. The inferior aspect of the fascial incision was grasped with Lakeisha clamps elevated and the underlying rectus muscle dissected off with the Bovie. The superior aspect the fascial incision was grasped with Lakeisha clamps elevated and the underlying rectus muscle dissected off with the Bovie. The rectus muscles were in the midline. The peritoneum was grasped between 2 Goldberg clamps and entered sharply with the Metzenbaum scissors. The peritoneum was extended superiorly and inferiorly with good visualization of the bladder. The vesicouterine peritoneum was incised transversely and the bladder flap created digitally. A Jumana blade was inserted. A low transverse incision was made in the uterus with a scapel and the incision was extended digitally. The infant's head delivered and the mouth and nose were suctioned with the bulb suction. The shoulder and body delivered atraumatically. The cord was clamped after 30 second delayed cord clamping and the cord was cut.? The was handed off to the waiting Pediatric staff, cord blood was collected for lab testing. The placenta was removed complete and intact. The uterus was exteriorized and cleared of all clots and debris. The uterine incision was closed with #1-0 chromic catgut suture in a running interlocking fashion. A second layer of the same suture was used to imbricate the first layer and obtain excellent hemostasis. The vesicouterine peritoneum was closed with 2-0 chromic catgut suture in a running fashion. The firm uterus was returned to the abdomen. The gutters were cleared of all clots and debris. The peritoneum was closed with 0 chromic catgut suture in running fashion. The rectus muscle was closed with 0 chromic catgut suture. The fascia was closed with 0 Vicryl beginning at each angle and ending in the center in a running fashion. The subcutaneous tissue was irrigated with warmed normal saline solution and found to be hemostatic. The subcutaneous tissue was closed with 2-0 chromic catgut suture in a running fashion. The skin was closed with 4-0 Monocryl. A Dermabond Prineo dressing was applied and a sterile pressure dressing was applied.? She tolerated the procedure well. Counts were correct. I discussed with the patient the nature of her condition, intraoperative findings and expectation for recovery all? questions answered Specimen: none Estimated blood loss (ml): 700 Complications: none Surgical staff Operation Date: 06/13/25 07:45 <No data on this case meets the specified criteria> Declan Jenkins SPECIFICATIONS WRITER Diagnosis Discharge Diagnosis (1) delivery delivered: Status: Acute Problem List Completed Was Problem List Reviewed/Reconciled?: Yes
--- NOTE | 2025-06-13 08:36 | ESDS_ITS ---
DS: Providers Provider Date of admission: 06/13/25 05:40 Primary care physician: FREEMAN SMITH Admitting Provider: Nahtan Bailon MD Attending Provider on Admission: Nathan Bailon MD Attending Provider on DC: Nathan Bailon MD Discharging Provider: Nathan Bailon MD DS: Diagnosis Discharge Diagnosis (1) delivery delivered: Status: Acute Problem List Completed Was Problem List Reviewed/Reconciled?: Yes Summary/Hosp Course Peripartum Data Delivery Method: Low Transverse Episiotomy Description: None Procedures: Procedures Operation Date: 06/13/25 07:45 <No data on this case meets the specified criteria> [place] 1: Gender: Female Time Spent with Patient Time attestation: Total time spent providing and/or coordinating discharge services: Exam Vital Signs Temp Pulse BP 97.7 F 96 135/70 H 06/13/25 06:15 06/13/25 05:58 06/13/25 05:58 Discharge Plan Plan Patient Disposition: HOME (Self Care) Patient condition on transfer: Stable Prescriptions/Referrals Prescriptions/Med Rec: New ibuprofen 600 mg tablet 600 mg PO Q6H PRN (Reason: pain) Qty: 30 0RF Continued ferrous sulfate [Alisha-Time] 325 mg (65 mg iron) tablet 325 mg PO Q OTHER DAY Vitamin 27 mg iron- 800 mcg tablet 1 tab PO QDAY Referrals: FREEMAN SMITH [Primary Care Provider] - Patient/Caregiver Discharge Instructions Discharge Activity: activity as tolerated Other Discharge Activity Instructions:: Follow up office 1 week. Education Materials: C Section Dc Print Language: Hungarian Stand Alone Forms: Viviane Award Info., Patient Portal Info Letter Planned Discharge Date 06/15/25
--- NOTE | 2025-06-13 08:36 | PD.LDDELS ---
Data (August) Data Hx Section: Yes : 2 Term: 1 : 0 Livin Abortions: Spontaneous & Theraputic: 0 Delivery Data (August) Labor Data Induction/Augmentation Agent: None ROM date: 06/13/25 ROM time: 08:01 Amniotic membrane rupture type: Artificial Amniotic fluid description: Clear Delivery Data EDC: 06/20/25 EDC calculated by:: LMP/early US confirmation delivery date: 06/13/25 delivery time: 08: Gestational age (weeks): 39 Gestational age (days): 0 Placenta delivery date: 06/13/25 Placenta delivery time: 08: Delivered by: Nathan Bailon Delivery nurse: Lico Tam RN [place] nurse: Marques KENDALL RN [employer] Curator at delivery: Yes (Dr. Billings) Support person(s) at delivery: fob Delivery Method Delivery method: Low Transverse Presentation: Vertex position: OA Anesthesia Type Anesthesia Type: Spinal Anesthesia type: Spinal Placenta Placenta delivery description: Manual Removal Cord blood sent to lab: Yes cord blood collection: Cord Blood Type Episiotomy Episiotomy description: None EBL Estimated blood loss (ml): 700 Umbilical Cord cord description: 3 Vessels Additional Procedures None Complications Complications: None [place] Data (August) Data 's gender: Female Identification band number: [id number] weight (gms): 8 lb 15.918 oz Weight (pounds): 8 lbs and 15.9 ozs [place] length: 21 in 1 minute: 8 5 minutes: 8
[2025-06-13] MEDS: OXYTOCIN in NS 20 units 20 UNIT/1,000 ML BAG 125 UNIT IV ×2 (09:33→17:58)
[2025-06-13] MEDS: ONDANSETRON INJ 2 MG/ML INJ 2 ML 4 MG IVP (10:39)
[2025-06-13 13:47] LABS: Basophils # (Auto) 0.0 Thou/mm3 (0.0-0.2); Basophils % (Auto) 0 % (0-2.5); Eosinophils # (Auto) 0.0 Thou/mm3 (0.0-0.5); Eosinophils % (Auto) 0 % (0-10); Hematocrit 33.4 % (36.0-46.0); Hemoglobin 10.8 g/dL (12.0-16.0); Immature Granulocytes Auto 0.16 Thou/mm3 (0.00-0.00); Lymphocytes # (Auto) 1.4 Thou/mm3 (1.0-4.8); Lymphocytes % (Auto) 8 % (10-50); Mean Corpuscular HGB Conc 32.3 g/dl (31.0-37.0); Mean Corpuscular Hemoglobin 26.4 pg (25.0-35.0); Mean Corpuscular Volume 82 fL (80-100); Monocytes # (Auto) 0.8 Thou/mm3 (0.0-0.8); Monocytes % (Auto) 5 % (0-12); Neutrophils # (Auto) 15.6 Thou/mm3 (1.8-7.7); Neutrophils % (Auto) 86 % (37-80); Nucleated Red Blood Cell # 0.00 Thou/mm3 (0.00-0.00); Nucleated Red Blood Cell % 0 /100 WBC (0); Platelet Count 324 Thou/mm3 (140-440); RDW Standard Deviation 46.5 fL (36.4-46.3); Red Blood Count 4.09 Miln/mm3 (4.00-5.20); White Blood Count 18.1 Thou/mm3 (3.6-11.0)
[2025-06-14 03:30] VITALS: BP 116/75; PULSE 100; RESP 16; TEMP 37.2; O2SAT 98
[2025-06-14] MEDS: IBUPROFEN TAB 400 MG TABLET 800 MG PO ×2 (03:39→21:58)
--- NOTE | 2025-06-14 07:05 | ESPR_ITS ---
RE: MANOLO CUMMINGS : 1995 DATE OF SERVICE: 06/14/2025 Postop day #1. The patient denies any problem or complaint. She is voiding. She is ambulating. She is tolerating a regular diet. She is passing flatus. She denies any excessive vaginal bleeding. She denies any dizziness or lightheadedness. She denies any chest pain, palpitations, shortness of breath or lower extremity pain. OBJECTIVE: Vital Signs: Blood pressure 116/75, heart rate 100, respirations 16, temperature is 99.0, pulse oximetry is 98% on room air. Lungs: Clear to auscultation bilaterally. Heart: Regular rate and rhythm. Abdomen: Nondistended. Dressing dry and intact. Extremities: Nontender. Skin: No rashes. Hemoglobin pre-delivery is 11.3, post-delivery is 10.8. ASSESSMENT: Postoperative day #1 status post delivery. PLAN: Remove dressing, discontinue IV, encourage ambulation, support. Possible discharge home tomorrow. DT: 06:56:03 TT: 07:02:00 Ref: [id number] - TID: [id number]
[2025-06-14 08:00] VITALS: BP 118/78; PULSE 101; RESP 18; TEMP 36.9; O2SAT 98
--- NOTE | 2025-06-14 11:15 | PC.CC ---
ASW-Angelique Baird met with patient [id number] to complete assessment. ASW introduced self, role, and reason for assessment. ASW disclosed limits of confidentiality as well. Patient appeared alert and oriented to self, place, and situation. Patient was pleasant; her mood appeared calm and friendly free of anxiety and depression. Patient?s thought process was linear and organized. No signs of delusions, paranoid or AVH. Pt confirmed her demographics and reported her address is [address] [place] [address] in [place], [place], as she reported she just moved there. ASW explained the reason for the referral as it was reported that the pt disclosed h/o anxiety. Pt reported that she did have h/o anxiety in the past, but stated she no longer suffers from anxiety. Pt reports she has strong supports with her family and in in-laws. Pt reports she is Breast feeding and had a . pt reports she is doing well so far and no medical concerns regarding the . Pt reports her OB/ care was with Dr. Hart and the infants Peds will be Dr. Hilary Mckeon. Pt reports she was ready for the and has all she needs for the infant. Pt states the infants hearing test has not been done and reports the infant is not on lights. Pt denies h/o prior CWS intervention. Pt and infant were present and bonding appropriately. Pt reports she does her own ADL's and does not use DME. ASW provided community resources to MH services and to the [facility], as well as to the [facility] Shaila Maciel backpack give away with immunizations and wellness check. Pt was receptive and accepting. At this time there are no concerns with SS.
[2025-06-14 12:00] VITALS: BP 107/70; PULSE 107; RESP 18; TEMP 36.9; O2SAT 99
[2025-06-14] MEDS: ENOXAPARIN SOD INJ 40 MG/0.4 ML SYRINGE SC (15:35)
[2025-06-14] MEDS: HYDROcodone/APAP 5/325 TABLET 1 TAB PO ×2 (15:39→20:55)
[2025-06-14 16:30] VITALS: BP 129/80; PULSE 108; RESP 19; TEMP 36.7; O2SAT 98
[2025-06-14] MEDS: SIMETHICONE 80 MG CHEW PO ×2 (17:47→21:59)
[2025-06-14 20:33] VITALS: BP 103/65; PULSE 112; RESP 23; TEMP 36.7; O2SAT 98
[2025-06-14 21:51] VITALS: BP 107/59; PULSE 106; RESP 20
[2025-06-14] MEDS: Milk Of Magnesia Susp 30 ML UDC PO (21:58)
[2025-06-15 00:08] VITALS: BP 103/66; PULSE 100; RESP 18; TEMP 36.6; O2SAT 98
[2025-06-15 03:50] VITALS: BP 120/75; PULSE 94; RESP 18; TEMP 36.7; O2SAT 98
--- NOTE | 2025-06-15 06:41 | ESPR_ITS ---
RE: MANOLO CUMMINGS : 1995 DATE OF SERVICE: 06/15/2025 Postop day #2. The patient reports burning with urination. No flank pain. No other problem or complaint. OBJECTIVE: Vital Signs: Blood pressure 120/75, heart rate 94, respirations 18, temperature is 98.1, pulse oximetry is 98% on room air. Lungs: Clear to auscultation bilaterally. Heart: Regular rate and rhythm. Flank: No CVA tenderness Abdomen: Incision clear and intact. Fundus is firm. Extremities: Nontender. ASSESSMENT: Postoperative day number 2, status post delivery. UTI v. urethritis due to catheter. PLAN: Discharge home on Macrobid. [facility] Discharge instructions given. Follow up in the office in 1 week. DT: 06:36:09 TT: 06:40:00 Ref: [id number] - TID: [id number] MTDD
[2025-06-15] MEDS: IBUPROFEN TAB 400 MG TABLET 800 MG PO (08:16)
[2025-06-15 08:20] VITALS: BP 137/82; PULSE 106; RESP 20; TEMP 36.9; O2SAT 97
[2025-06-15] MEDS: ENOXAPARIN SOD INJ 40 MG/0.4 ML SYRINGE SC (08:44)
--- NOTE | 2025-06-15 08:45 | CHAP ---
Patient was visited by a Spiritual Care Volunteer on 06/14/2025 between 0900 and 1200 and received comfort, encouragement and/or prayer.
[2025-06-15] MEDS: SIMETHICONE 80 MG CHEW PO (09:19)
[2025-06-15] MEDS: HYDROcodone/APAP 5/325 TABLET 2 TAB PO (11:56)
[2025-06-15 12:00] VITALS: BP 113/76; PULSE 100; RESP 20; TEMP 36.8; O2SAT 98
== END 2025-06-15 12:50 | disposition home or self-care (01) | DRG 787 ==
LOC: S4SX 06:53 → S4NX 08:00
PROVIDERS: Admitting Provider Specialist; PCP Nurse Practitioner Family; Visit Provider Specialist
PROC: 10D00Z1 Extraction of Products of Conception, Low, Open Approach (ICD-10-PCS; CPT 59514; principal; 2025-06-13 07:30)
DX: O34.211 Maternal care for low transverse scar from previous cesarean delivery (principal); O86.22 Infection of bladder following delivery; T83.518A Infection and inflammatory reaction due to other urinary catheter, initial encounter; N34.2 Other urethritis; N80.9 Endometriosis, unspecified; O34.83 Maternal care for other abnormalities of pelvic organs, third trimester; O99.892 Other specified diseases and conditions complicating childbirth; R03.0 Elevated blood-pressure reading, without diagnosis of hypertension; Z37.0 Single live birth; Z3A.39 39 weeks gestation of pregnancy; Y84.6 Urinary catheterization as the cause of abnormal reaction of the patient, or of later complication, without mention of misadventure at the time of the procedure; Y92.230 Patient room in hospital as the place of occurrence of the external cause
CPT/HCPCS: 36415; 80053; 85025; 85610; 85730; 86780; 86850; 86900; 86901; 87077; 87086; 87186; A4314; A4649; J1580; J1650; J2274; J2371; J2405; J2590; J2765; J3010; J3490; J7120; S0077; A9270; J0736; J2270

== ENCOUNTER 2025-07-21 23:56 | Emergency (ER) | payer MEDICAID, SELFPAY ==
[2025-07-22 00:10] VITALS: BP 124/75; PULSE 78; RESP 16; TEMP 37.1; O2SAT 97; BMI 48.2
--- NOTE | 2025-07-22 00:27 | XR_ITS ---
Examination: Transvaginal ultrasound of the pelvis, complete Technique: Transvaginal sonographic images pelvis performed using segura scale imaging Exam date and time: July 22, 2025, 0212 hrs. Indications: Vaginal bleeding 3 weeks, status post June 05, 2025. Findings: Uterus 12.6 cm endometrial stripe 13 mm 16 x 14 x 20 mm mass at the incision site Ovaries obscured by bowel gas Impression: Probable small area of fibroid degeneration at the site versus small hematoma Recommend one week follow-up transvaginal pelvic sonography.
[2025-07-22 00:57] LABS: Basophils # (Auto) 0.0 Thou/mm3 (0.0-0.2); Basophils % (Auto) 0 % (0-2.5); Eosinophils # (Auto) 0.2 Thou/mm3 (0.0-0.5); Eosinophils % (Auto) 2 % (0-10); Hematocrit 35.7 % (36.0-46.0); Hemoglobin 11.3 g/dL (12.0-16.0); Immature Granulocytes Auto 0.03 Thou/mm3 (0.00-0.00); Lymphocytes # (Auto) 3.2 Thou/mm3 (1.0-4.8); Lymphocytes % (Auto) 36 % (10-50); Mean Corpuscular HGB Conc 31.7 g/dl (31.0-37.0); Mean Corpuscular Hemoglobin 25.9 pg (25.0-35.0); Mean Corpuscular Volume 82 fL (80-100); Monocytes # (Auto) 0.4 Thou/mm3 (0.0-0.8); Monocytes % (Auto) 4 % (0-12); Neutrophils # (Auto) 5.2 Thou/mm3 (1.8-7.7); Neutrophils % (Auto) 58 % (37-80); Nucleated Red Blood Cell # 0.00 Thou/mm3 (0.00-0.00); Nucleated Red Blood Cell % 0 /100 WBC (0); Platelet Count 333 Thou/mm3 (140-440); RDW Standard Deviation 45.8 fL (36.4-46.3); Red Blood Count 4.37 Miln/mm3 (4.00-5.20); White Blood Count 9.0 Thou/mm3 (3.6-11.0)
[2025-07-22 01:10] LABS: Collection Type, Urine Clean Catch
[2025-07-22 01:20] LABS: HCG Qualitative,Urine Negative
[2025-07-22 01:29] LABS: Bilirubin,Urine Negative (Negative); Blood,Urine 3+ (Negative); Clarity,Urine Clear (Clear/Hazy); Color,Urine Red (Lt Yel-Yel); Culture Indicated,Urine Yes; Glucose, Urine Negative (Negative); Ketones,Urine Negative (Negative); Leukocyte Esterase,Urine Negative (Negative); Nitrite,Urine Negative (Negative); PH,Urine 6.0 (5.0-7.0); Protein,Urine 2+ (Neg - Trace); RBC,Urine 8288 /hpf (0-3); Specific Gravity,Urine 1.031 (1.001-1.035); Squamous Epithelial Cell,Urine 7 /hpf (0-5); Urobilinogen,Urine Negative mg/dL (0.0-1.0); WBC,Urine 481 /hpf (0-5)
--- NOTE | 2025-07-22 01:36 | PD.EDVAGBL ---
ED OB Contraction Preg RMI/HPI General Chief complaint: Vaginal Bleeding Stated complaint: S/P CSECTION 1 MONTH, HEAVING BLEEDING Time Seen by Provider: 07/22/25 00:25 Arrival date/time: 07/21/25 23:56 29F with no significant PMH presents to ED with 2 days of pelvic pain/cramping and vaginal bleeding. Patient had a about 1 month ago. Patient is doing some and formula. Limitations: no limitations Related Data Home Medications ?Medication ?Instructions ?Recorded ?Confirmed ferrous sulfate 325 mg (65 mg 325 mg PO Q OTHER DAY 06/13/25 06/13/25 iron) tablet (Alisha-Time) vits no.130-ferrous fum 1 tab PO QDAY 06/13/25 06/13/25 27 mg iron-folic acid 800 mcg tablet ( Vitamin) Previous Rx's ?Medication ?Instructions ?Recorded ibuprofen 600 mg tablet 600 mg PO Q6H PRN pain #30 tabs 06/14/25 Allergies Allergy/AdvReac Type Severity Reaction Status Date / Time amoxicillin Allergy Severe Hives Verified 06/13/25 06:17 Review of Systems Review of Systems Systems Reviewed: All systems reviewed, normal except as documented Constitutional Constitutional: Reports system reviewed and no additional complaints, except as documented, Denies fever(s) and Denies headache(s) ENT Ears, Nose, Mouth, and Throat: Denies disequilibrium and Denies headache(s) Cardiovascular Cardiovascular: Reports system reviewed and no additional complaints, except as documented, Denies chest pain and Denies dyspnea Respiratory Respiratory: Reports system reviewed and no additional complaints, except as documented, Denies cough and Denies dyspnea Gastrointestinal Gastrointestinal: Reports system reviewed and no additional complaints, except as documented, Denies abdominal pain, Denies nausea and Denies vomiting Genitourinary Genitourinary: Reports as per HPI, Reports abnormal vaginal bleeding and Reports pelvic pain Neurologic Neurologic: Reports system reviewed and no additional complaints, except as documented, Denies confusion, Denies disequilibrium and Denies headache(s) Psychiatric Psychiatric: Denies confusion Past Medical History Past Medical History NEUROLOGIC: Negative Neurological Disorders or Seizures CARDIAC: 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 pylori, txd), Gall Bladder Disease (gallstones), Gastroesophageal Reflux Disease and Obesity; Negative Hepatitis, Cirrhosis, Pancreatitis, Celiac Disease, Gastrointestinal Bleed, Esophageal Varices, Reno's Esophagus, Colitis, Ulcerative Colitis, Diverticulitis, Diverticulosis, Ulcer, Irritable Bowel, Crohn's Disease, Obstructive Bowel, Hiatal Hernia or Hemorrhoids GENITOURINARY: Positive Genitourinary Disorders (uti); Negative Renal Disease, Kidney Stones, Polycystic Kidney Disease, Neurogenic Bladder, Inguinal Hernia or Dialysis REPRODUCTIVE: Positive Previous Pregnancies (x1); Negative Endometriosis, Genital Herpes, Gonorrhea, Pelvic Inflammatory Disease, Syphilis or Uterine Prolapse MUSCULOSKELETAL: Negative Musculoskeletal Disorders ENDOCRINE: Negative Endocrine Disorders, Diabetes Mellitus Type 1 or Diabetes Mellitus Type 2 HEMATOLOGIC: Positive Anemia; Negative Blood Disorders, Leukemia, Hemophilia, Thalassemia, Sickle Cell Disease or Clotting Problems PSYCHO/SOCIAL: Positive Depression and Anxiety; Negative Psychiatric Problems, Schizophrenia, Recreational Drug Use, Bipolar Disorder, Behavior Problems, Self-Mutilation, Attention Deficit Disorder, Attention Deficit Hyperactivity Disorder, Depression, Post Traumatic Stress Disorder or Eating Disorder OTHER HISTORY: Positive Hospitalization (2020); Negative Autoimmune Disease, Down Syndrome, Autism, Developmental Delay, Shingles, Falls, Blood Transfusions, Blood Transfusion Reaction, Anesthesia Reactions, Organ Transplant, Chemotherapy, Radiation Therapy, Hyperbaric Therapy, MRSA, VRSA, Vancomycin-Resistant Enterococci, Human Immunodeficiency Virus (HIV), Chicken Pox, Measles, Mumps, Rubella (Khmer Measles), Pertussis, Clostridium Difficile or Cancer Family History FAMILY HISTORY: Positive Family Cancer (mom-gallbladder) and Family Surgery (dad-cholecystectomy); Negative Family Psychiatric Problems, Family Respiratory Disorders, Family Cardiac Disorders, Family Gastrointestinal Problems or Family Anesthesia Reaction Surgical History SURGICAL: Positive Section; Negative Cardiac Surgery, Pacemaker, Endocrine Surgery, Ear Surgery, Abdominal Surgery, Nephrectomy, Joint Replacement, Neurologic Surgery, Lumpectomy or Organ Transplant Social History SMOKING STATUS: Never smoker SECOND HAND EXPOSURE: No ED Exam General Limitations: Present no limitations General appearance: Present alert and in no apparent distress Head Head exam: Present atraumatic Eye Eye exam: Present normal appearance, PERRL and EOMI ENT ENT exam: Present normal exam, normal oropharynx and mucous membranes moist Neck Neck exam: Present normal inspection, full ROM and trachea midline Chest Chest inspection: Present normal inspection and symmetric chest wall rise Respiratory Respiratory exam: Present normal lung sounds bilaterally Cardiovascular Cardiovascular exam: Present regular rate, normal rhythm and normal heart sounds Abdominal Exam Abdominal exam: Present soft and normal bowel sounds Extremities Exam Extremities exam: Present normal inspection and full ROM Back Exam Back exam: Present normal inspection and full ROM Neurological Exam Neurological exam: Present alert, oriented X3 and CN II-XII intact Psychiatric Psychiatric exam: Present normal affect and normal mood Skin Skin exam: Present warm, dry, intact and normal color Course Quality Measures none Orders Category Date Time Status US transvaginal Stat Exams 07/22/25 00:27 Taken CBC Stat Lab 07/22/25 00:35 Completed CMP [Comprehensive Metabolic Panel] Stat Lab 07/22/25 00:35 Completed HCG Qualitative,Urine Stat Lab 07/22/25 00:56 Completed Urinalysis, C/S if Indicated Stat Lab 07/22/25 00:56 Completed Urine Culture Stat Lab 07/22/25 00:56 Received Vital Signs Vital signs: Vital Signs Temperature 98.8 F 07/22/25 00:10 Pulse Rate 78 07/22/25 00:10 Respiratory Rate 16 07/22/25 00:10 Blood Pressure 124/75 07/22/25 00:10 Pulse Oximetry (%) 97 07/22/25 00:10 Oxygen Delivery Method Room Air 07/22/25 00:10 O2 at 97% on RA and WNLs Vaginal Bleeding MDM Narrative MDM Narrative: 29F with no significant PMH presents to ED with 2 days of pelvic pain/cramping and vaginal bleeding. Patient had a about 1 month ago. Patient is doing some and formula. Physical exam reveals well-appearing female. patient is afebrile, calm, and alert. Telerad US reveals likely fibroid. Unlikely retained POC given vs vaginal delivery. Also, no discharge, fevers/chills, foul-smell so even likely endometritis. Likely period coming back as well, given patient is not as much. UA contaminated, but mostly blood. Patient denies dysuria, so will not treat for UTI. HCG neg. Business Representative given. Patient data External records reviewed:: [facility] previous records Clinical information provided by:: patient Social determinants that could affect healthcare access:: none Patient has the following chronic illnesses:: none How is presenting disease/condition affected by chronic disease/condition?: no chronic disease Evaluation data The following diagnostics were reviewed and interpreted by me:: lab results and radiology exam(s) Lab and/or radiology exams considered but not ordered:: ordered Interpretation Summary: above Medications / Prescriptions Medications or Prescriptions considered but not ordered:: not ordered Medication administrations:: n/a Consultations Consultation(s) initiated? (list below): No Diagnosis Vaginal Bleeding Differential Diagnosis: missed , threatened , dysfunctional uterine bleeding, menometrorrhagia, incomplete , ectopic without intrauterine , vaginal bleeding and other (fibroid and vaginal bleeding) Most likely diagnosis given after review of the tests above:: fibroid and vaginal bleeding Admission Indicated Admission indicated?: not indicated Admission Request Was there a request for admission?: No Disposition Plan Disposition Plan: Discharge Discharge Attestation Discharge Attestation: The patient and all family members were given an opportunity to ask questions and understood the discharge instructions. Discharge instructions specifically effects, indications for sooner follow up or return to the emergency department, and the expected course of current diagnosis. Patient condition: Stable Discharge Plan Plan Patient Disposition: HOME (Self Care) Discharge Disposition comment: Stable Prescriptions/Referrals Prescriptions/Med Rec: No Action ferrous sulfate [Alisha-Time] 325 mg (65 mg iron) tablet 325 mg PO Q OTHER DAY Vitamin 27 mg iron- 800 mcg tablet 1 tab PO QDAY ibuprofen 600 mg tablet 600 mg PO Q6H PRN (Reason: pain) Qty: 30 0RF Referrals: No Primary/Family,Physician [Primary Care Provider] - In 1 week Problem List Clinical Impression: Vaginal bleeding, Fibroid Patient/Caregiver Discharge Instructions Education Materials: Understanding Uterine Bleeding Additional Instructions: Please follow-up with PCP/OBYGN within 24-48 hours and return immediately if symptoms worsen. Print Language: Turkish Stand Alone Forms: Patient Portal Info Letter PA/ACCOUNTS RECEIVABLE SUPERVISOR Supervising Physician KERRY/NGUYEN Supervising Physician: Dr. Patel
[2025-07-22 01:51] LABS: Alanine Aminotransferase 15 U/L (10-49); Albumin, Serum 4.4 gm/dL (3.5-5.0); Albumin/Globulin Ratio 1.4 (1.2-2.2); Alkaline Phosphatase 120 U/L (46-116); Anion Gap 11 (7-16); Aspartate Amino Transferase 16 U/L (0-34); BUN/Creatinine Ratio 16 Ratio (12-20); Bilirubin,Total 0.3 mg/dL (0.3-1.2); Blood Urea Nitrogen 13 mg/dL (9-23); Calcium 9.7 mg/dL (8.3-10.6); Calcium (Corrected) 9.7 mg/dL (8.5-10.1); Carbon Dioxide 28.3 mMol/L (20.0-31.0); Chloride 105 mMol/L (98-107); Creatinine (Component) 0.8 mg/dL (0.6-1.3); Estimated Creatinine Clearance 125.0 mL/min (>60); Globulin 3.1 gm/dL (2.3-3.5); Glucose 90 mg/dL (74-106); Osmolality,Calculated 286 (275-295); Potassium 3.7 mMol/L (3.4-5.1); Sodium 144 mMol/L (136-145); Total Protein 7.5 gm/dL (5.7-8.2); eGFR > 60 See Note
--- NOTE | 2025-07-22 03:49 | PRELIM_ITS ---
Pelvic ultrasound (transvaginal). July 22, 2025 at 0212 hours Clinical history: Cramping/bleeding 2 days; 1 month PP. Technique: Real-time, grayscale, transvaginal pelvic ultrasound was performed using Duplex scanning including arterial inflow, venous outflow, color and spectral Doppler. Comparison: No prior study is available for comparison. Findings: The uterus is enlarged, measuring 12.6 x 7.1 x 7.0 cm. The endometrium is thickened, measuring 1.3 cm. A small, round, hypoechoic lesion is seen in the anterior uterine wall, measuring 1.6 x 1.4 x 2 cm. This appears contained within the myometrium and does not extend into the endometrial cavity. The right ovary was not visualised on the submitted images. The left ovary was not visualised on the submitted images. No adnexal mass is identified. No free fluid is seen in the pelvis. Impression: Enlarged uterus with thickened endometrium (1.3 cm). Small anterior myometrial hypoechoic lesion (1.6 x 1.4 x 2 cm), most likely representing a small intramural fibroid or postoperative change at the caesarean section scar site. Findings may account for the patient???s persistent bleeding. Retained products of conception cannot be entirely excluded given the endometrial thickness and clinical history; correlation with ??-hCG and clinical findings is advised. Recommend clinical correlation and, if symptoms persist, follow-up ultrasound or pelvic MRI for further evaluation. Report Electronically Signed By: Brijesh Hernandez 07/22/2025 3:48:45 AM [EST]
== END 2025-07-22 04:14 | disposition home or self-care (01) ==
PROVIDERS: Physician Assistant; Emergency Provider Emergency Medicine
DX: D25.9 Leiomyoma of uterus, unspecified (principal); N93.9 Abnormal uterine and vaginal bleeding, unspecified
CPT/HCPCS: 36415; 76830; 80053; 81001; 81025; 84702; 85025; 87086; 99283

== ENCOUNTER 2025-09-09 04:29 | Emergency (ER) | payer MEDICAID, SELFPAY ==
[2025-09-09 04:32] VITALS: BP 123/72; PULSE 71; RESP 18; TEMP 36.7; O2SAT 97; BMI 105.7; BMI 47.2
--- NOTE | 2025-09-09 04:58 | PD.EDFMALE ---
ED Female Urogenital RME/HPI General Chief complaint: Urogenital-Female Stated complaint: PAINFUL URINATION LOW ABD PAIN Time Seen by Provider: 09/09/25 04:47 Arrival date/time: 09/09/25 04:29 29F with no significant PMH presents to ED with 1 week of dysuria and pelvic pain. Patient denies flank pain, N/V, and is not on her cycle. Limitations: no limitations Related Data Home Medications ?Medication ?Instructions ?Recorded ?Confirmed ferrous sulfate 325 mg (65 mg 325 mg PO Q OTHER DAY 06/13/25 06/13/25 iron) tablet (Alisha-Time) vits no.130-ferrous fum 1 tab PO QDAY 06/13/25 06/13/25 27 mg iron-folic acid 800 mcg tablet ( Vitamin) Previous Rx's ?Medication ?Instructions ?Recorded ibuprofen 600 mg tablet 600 mg PO Q6H PRN pain #30 tabs 06/14/25 cefuroxime axetil 500 mg tablet 500 mg PO BID 7 days #14 tabs 09/09/25 Allergies Allergy/AdvReac Type Severity Reaction Status Date / Time amoxicillin Allergy Severe Hives Verified 09/09/25 04:41 Review of Systems Review of Systems Systems Reviewed: All systems reviewed, normal except as documented Genitourinary Genitourinary: Reports as per HPI, Reports dysuria and Reports pelvic pain Past Medical History Past Medical History NEUROLOGIC: Negative Neurological Disorders or Seizures CARDIAC: 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 pylori, txd), Gall Bladder Disease (gallstones), Gastroesophageal Reflux Disease and Obesity; Negative Hepatitis, Cirrhosis, Pancreatitis, Celiac Disease, Gastrointestinal Bleed, Esophageal Varices, Reno's Esophagus, Colitis, Ulcerative Colitis, Diverticulitis, Diverticulosis, Ulcer, Irritable Bowel, Crohn's Disease, Obstructive Bowel, Hiatal Hernia or Hemorrhoids GENITOURINARY: Positive Genitourinary Disorders (uti); Negative Renal Disease, Kidney Stones, Polycystic Kidney Disease, Neurogenic Bladder, Inguinal Hernia or Dialysis REPRODUCTIVE: Positive Previous Pregnancies (x1); Negative Endometriosis, Genital Herpes, Gonorrhea, Pelvic Inflammatory Disease, Syphilis or Uterine Prolapse MUSCULOSKELETAL: Negative Musculoskeletal Disorders ENDOCRINE: Negative Endocrine Disorders, Diabetes Mellitus Type 1 or Diabetes Mellitus Type 2 HEMATOLOGIC: Positive Anemia; Negative Blood Disorders, Leukemia, Hemophilia, Thalassemia, Sickle Cell Disease or Clotting Problems PSYCHO/SOCIAL: Positive Depression and Anxiety; Negative Psychiatric Problems, Schizophrenia, Recreational Drug Use, Bipolar Disorder, Behavior Problems, Self-Mutilation, Attention Deficit Disorder, Attention Deficit Hyperactivity Disorder, Depression, Post Traumatic Stress Disorder or Eating Disorder OTHER HISTORY: Positive Hospitalization (2020); Negative Autoimmune Disease, Down Syndrome, Autism, Developmental Delay, Shingles, Falls, Blood Transfusions, Blood Transfusion Reaction, Anesthesia Reactions, Organ Transplant, Chemotherapy, Radiation Therapy, Hyperbaric Therapy, MRSA, VRSA, Vancomycin-Resistant Enterococci, Human Immunodeficiency Virus (HIV), Chicken Pox, Measles, Mumps, Rubella ([place] Measles), Pertussis, Clostridium Difficile or Cancer Family History FAMILY HISTORY: Positive Family Cancer (mom-gallbladder) and Family Surgery (dad-cholecystectomy); Negative Family Psychiatric Problems, Family Respiratory Disorders, Family Cardiac Disorders, Family Gastrointestinal Problems or Family Anesthesia Reaction Surgical History SURGICAL: Positive Section; Negative Cardiac Surgery, Pacemaker, Endocrine Surgery, Ear Surgery, Abdominal Surgery, Nephrectomy, Joint Replacement, Neurologic Surgery, Lumpectomy or Organ Transplant Social History SMOKING STATUS: Never smoker SECOND HAND EXPOSURE: No ED Exam General Limitations: Present no limitations General appearance: Present alert and in no apparent distress Head Head exam: Present atraumatic Neck Neck exam: Present normal inspection, full ROM and trachea midline Chest Chest inspection: Present normal inspection and symmetric chest wall rise Abdominal Exam Abdominal exam: Absent tenderness (per patient) Neurological Exam Neurological exam: Present alert and oriented X3 Psychiatric Psychiatric exam: Present normal affect and normal mood Skin Skin exam: Present warm, dry, intact and normal color Course Quality Measures none Orders Category Date Time Status HCG Qualitative,Urine Stat Lab 09/09/25 05:00 Completed Urinalysis, C/S if Indicated Stat Lab 09/09/25 05:00 Completed Naproxen [Naprosyn] Med 09/09/25 05:28 Discontinued 500 mg PO X1 ONE cefuroxime axetiL [cefUROXime axetil] Med 09/09/25 05:28 Pending 500 mg PO X1 ONE Vital Signs Vital signs: Vital Signs Temperature 98.1 F 09/09/25 04:32 Pulse Rate 71 09/09/25 04:32 Respiratory Rate 18 09/09/25 04:32 Blood Pressure 123/72 09/09/25 04:32 Pulse Oximetry (%) 97 09/09/25 04:32 Oxygen Delivery Method Room Air 09/09/25 04:32 O2 at 97% on RA and WNLs Urogenital - Female MDM Narrative MDM Narrative:: 29F with no significant PMH presents to ED with 1 week of dysuria and pelvic pain. Patient denies flank pain, N/V, and is not on her cycle. Physical exam reveals well-appearing female. Patient states when she presses on her ab/pelvis, there is no tenderness. Patient is afebrile, calm, and alert. UA suggests UTI, though it is contaminated. HCG neg. Meds and direct care counselor given. Patient data External records reviewed:: [facility] previous records Clinical information provided by:: patient Social determinants that could affect healthcare access:: none Patient has the following chronic illnesses:: none How is presenting disease/condition affected by chronic disease/condition?: no chronic disease Evaluation data The following diagnostics were reviewed and interpreted by me:: lab results Lab and/or radiology exams considered but not ordered:: ordered Interpretation Summary: above Medications / Prescriptions Medications or Prescriptions considered but not ordered:: ordered Medication administrations:: Medication Administration History Cefuroxime Axetil (Cefuroxime Axetil 250 Mg Tablet) 500 mg PO X1 ONE Stop: 09/09/25 05:29 Discontinued Medications Naproxen (Naproxen 250 Mg Tablet) 500 mg PO X1 ONE Stop: 09/09/25 05:29 above Consultations Consultation(s) initiated? (list below): No Diagnosis Urogenital Female Differential Diagnosis: urinary tract infection, bacterial vaginosis, trichomoniasis, cervicitis, ovarian cyst, vaginitis, ruptured ovarian cyst, cyst of Bartholin's gland, cystitis and dysmenorrhea Most likely diagnosis given after review of the tests above:: UTI Admission Indicated Admission indicated?: not indicated Admission Request Was there a request for admission?: No Disposition Plan Disposition Plan: Discharge Discharge Attestation Discharge Attestation: The patient and all family members were given an opportunity to ask questions and understood the discharge instructions. Discharge instructions specifically effects, indications for sooner follow up or return to the emergency department, and the expected course of current diagnosis. Patient condition: Stable Discharge Plan Plan Patient Disposition: HOME (Self Care) Discharge Disposition comment: Stable Prescriptions/Referrals Prescriptions/Med Rec: New cefuroxime axetil 500 mg tablet 500 mg PO BID 7 Days Qty: 14 0RF No Action ferrous sulfate [Alisha-Time] 325 mg (65 mg iron) tablet 325 mg PO Q OTHER DAY Vitamin 27 mg iron- 800 mcg tablet 1 tab PO QDAY ibuprofen 600 mg tablet 600 mg PO Q6H PRN (Reason: pain) Qty: 30 0RF Referrals: FREEMAN SMITH [Primary Care Provider] - In 1 week Problem List Clinical Impression: Urinary tract infection Patient/Caregiver Discharge Instructions Education Materials: ED CYSTITIS Female Adult Additional Instructions: Please follow-up with PCP within 24-48 hours and return immediately if symptoms worsen. NSAIDs like ibuprofen tend to work better for this type of pain. Print Language: Lao Stand Alone Forms: Patient Portal Info Letter KERRY/NGUYEN Supervising Physician KEELEY Supervising Physician: Dr. Walters
[2025-09-09 05:18] LABS: Collection Type, Urine Clean Catch
[2025-09-09 05:21] LABS: HCG Qualitative,Urine Negative
[2025-09-09 05:23] LABS: Bacteria,Urine 1+; Bilirubin,Urine Negative (Negative); Blood,Urine 1+ (Negative); Color,Urine Yellow (Lt Yel-Yel); Culture Indicated,Urine Contaminated; Glucose, Urine Negative (Negative); Ketones,Urine Trace (Negative); Leukocyte Esterase,Urine Positive (Negative); Nitrite,Urine Negative (Negative); PH,Urine 6.0 (5.0-7.0); Protein,Urine 1+ (Neg - Trace); RBC,Urine 27 /hpf (0-3); Specific Gravity,Urine 1.032 (1.001-1.035); Squamous Epithelial Cell,Urine 24 /hpf (0-5); Urobilinogen,Urine Negative mg/dL (0.0-1.0); WBC,Urine 441 /hpf (0-5)
[2025-09-09 05:24] LABS: Clarity,Urine Turbid (Clear/Hazy)
[2025-09-09] MEDS: NAPROXEN 250 MG TABLET 500 MG PO (06:18)
== END 2025-09-09 06:21 | disposition home or self-care (01) ==
PROVIDERS: Physician Assistant; Emergency Provider Emergency Medicine; PCP Nurse Practitioner Family
DX: N30.90 Cystitis, unspecified without hematuria (principal); Z95.0 Presence of cardiac pacemaker
CPT/HCPCS: 81001; 81025; 99282; A9270

== ENCOUNTER 2025-10-04 07:14 | Emergency (ER) | payer MEDICAID, SELFPAY ==
[2025-10-04 07:19] VITALS: BP 136/85; PULSE 76; RESP 18; TEMP 37.3; O2SAT 99; BMI 48.2
--- NOTE | 2025-10-04 07:26 | EDNOTE_ITS ---
ED Back Injury Pain RME/HPI General Chief Complaint: General Adult/Misc Complain Stated Complaint: LOSS OF SENSATION FROM C.SECTION DOWN TO FEET Time Seen by Provider: 10/04/25 07:22 Arrival date/time: 10/04/25 07:14 RME / HPI RME / HPI Narrative: See [facility] for Dr. Patel's HPI documentation. Related Data Home Medications ?Medication ?Instructions ?Recorded ?Confirmed ferrous sulfate 325 mg (65 mg 325 mg PO Q OTHER DAY 06/13/25 iron) tablet (Alisha-Time) vits no.130-ferrous fum 1 tab PO QDAY 5 06/13/25 27 mg iron-folic acid 800 mcg tablet ( Vitamin) Previous Rx's ?Medication ?Instructions ?Recorded ibuprofen 600 mg tablet 600 mg PO Q6H PRN pain #30 t abs 06/14/25 acetaminophen 300 mg-codeine 30 mg 2 tab PO Q8H PRN pa in #20 tabs 10/04/25 tablet cyclobenzaprine 5 mg tablet 5 mg PO TID PRN muscle spa sm #15 10/04/25 tabs lidocaine 5 % topical patch 2 patch topical QDAY PRN p ain #30 10/04/25 (Lidoderm) ea Allergies Allergy/AdvReac Type Severity Reaction Status Date / Time amoxicillin Allergy Severe Hives Verified 10/04/25 07:17 Review of Systems Review of Systems Systems Reviewed: All systems reviewed, normal except as documented Past Medical History Past Medical History CARDIAC: Positive Cardiac Disorders (borderline chtn) and Hypertension (borderline chtn) GASTROINTESTINAL: Positive Gastrointestinal Disorders (h. pylori, txd), Gall Bladder Disease (gallstones), Gastroesophageal Reflux Disease and Obesity GENITOURINARY: Positive Genitourinary Disorders (uti) REPRODUCTIVE: Positive Previous Pregnancies (x1) HEMATOLOGIC: Positive Anemia PSYCHO/SOCIAL: Positive Depression and Anxiety OTHER HISTORY: Positive Hospitalization (2020) Family History FAMILY HISTORY: Positive Family Cancer (mom-gallbladder) and Family Surgery (dad-cholecystectomy) Surgical History SURGICAL: Positive Section Social History SMOKING STATUS: Never smoker SECOND HAND EXPOSURE: No ED Exam Narrative Physical exam: See [facility] for Dr. Patel's physical exam documentation. Course Quality Measures none Orders Category Date Time Status CT cervical spine wo con Stat Exams 10/04/25 07:[address] head/brain wo con Stat Exams 10/04/25 07:[address] lumbar spine wo con Stat Exams 10/04/25 07:[address] thoracic spine wo con Stat Exams 10/04/25 07:28 Completed Bilirubin,Direct Stat Lab 10/04/25 07:35 Completed CBC Stat Lab 10/04/25 07:35 Completed CK [Creatine Kinase] Stat Lab 10/04/25 07:35 Completed CMP [Comprehensive Metabolic Panel] Stat Lab 10/04/25 07:35 Completed CRP [C-Reactive Protein] Stat Lab 10/04/25 07:35 Completed ESR [Sed Rate (ESR)] Stat Lab 10/04/25 07:35 Completed HCG,Qualitative Serum Stat Lab 10/04/25 07:35 Completed Hemoglobin A1C [Glycohemoglobin w (eAG)] Stat Lab 10/04/25 07:35 Completed Magnesium Stat Lab 10/04/25 07:35 Completed Procalcitonin Stat Lab 10/04/25 07:35 Completed TSH [Thyroid Stimulating Hormone] Stat Lab 10/04/25 07:35 Completed UA, C/S IF [Urinalysis, C/S if Indicated] Stat Lab 10/04/25 07:50 Completed Vital Signs Vital signs: Vital Signs Temperature 99.1 F 10/04/25 07:19 Pulse Rate 76 10/04/25 07:19 Respiratory Rate 18 10/04/25 07:19 Blood Pressure 136/85 H 10/04/25 07:19 Pulse Oximetry (%) 99 10/04/25 07:19 Oxygen Delivery Method Room Air 10/04/25 07:19 Pulse ox is 99% on room air which is adequate. Back Pain / Injury [facility] Narrative [facility] Narrative:: This section includes all my notes and documentations, including HPI, PE, and ED course. Jasvir Patel MD HPI: 29-year-old female here with 3 days of low back pain and numbness and tingling in lower extremities. Also headache and neck pain and numbness and tingling in the arms. No loss of power in the arms or legs. Had 4 months ago. No other complaints. ROS: All negative except as documented in HPI. Physical Exam: General: Alert and oriented. No acute distress when remaining still. Eyes: Conjunctivae and lids clear. EOMI. PERRL. ENT: No nasal congestion. Neck: Supple. No tenderness. Heart: RRR. Lungs: No respiratory distress. Good air movement. No rhonchi, wheezing, rales. Chest: No tenderness. Abdomen: Soft and nontender. Normal bowel sounds. No distension. No rebound or guarding. Back: No tenderness. Legs: No clubbing, cyanosis, edema. Skin: Warm and dry. Neuro: Alert and oriented X 3. Cranial Nerves II-XII grossly intact. No peripheral motor deficits. Musculoskeletal: All major joints and bones are not tender with no limited ROM. I reviewed all diagnostic test results: My review of the CT head report is: No acute findings My review of the CT cervical spine report is: No cervical fracture My review of the CT lumbar spine report is: L5-S1 spinal stenosis My review of the CT thoracic spine report is: No acute findings Blood tests and urine tests are unremarkable At this point, diagnoses include: Sciatica Recommended more outpatient care. Based on my best medical judgment, made decision no further evaluation or treatment indicated at this time. Patient understands and agrees to the discharge instructions customized and printed, see below. Discharge Instructions from Dr. Patel: --After evaluation, we are dealing with Sciatica (same as Lumbar Radiculopathy or Spinal Stenosis) where pinched nerve is causing your symptoms.? See attached handout on sciatica. --This condition is difficult because normal pain medications don?t work very well on nerve pain. --Despite the pain, try to resume your normal chores and activities.? Because inactivity is terrible for this condition.? And activity won?t make your condition worse.? Use a cane of stick to help stand and walk.? --Use Ibuprofen and Cyclobenzaprine and Tylenol with codeine and lidocaine patches as needed.? Don't expect the pain to go away completely, hoping to take the edge off.?? --When resting and sleeping, try position (with your knees to your chest and bending forward).? This can take some pressure off the nerve and help your pain. --Apply ice or heat if helpful. --See a private doctor (outside the ER) on 10/06/2025 for further care. Ask to help you get more care not available here in the ER.? Such as MRI imaging, physical therapy, and referrals to see specialists.? Some choose to have surgery for this condition. But you need to have MRI imaging to confirm the diagnosis and assess the severity to get the best treatments. --Seek immediate medical care with paralysis in your foot, losing control of your bladder or bowels, saddle numbness (anal numbness), or with any concerns.?? Jasvir Patel MD Patient data External records reviewed:: [facility] previous records Clinical information provided by:: patient Social determinants that could affect healthcare access:: none Patient has the following chronic illnesses:: No chronic medical hx reported How is presenting disease/condition affected by chronic disease/condition?: no chronic disease Evaluation data The following diagnostics were reviewed and interpreted by me:: lab results and radiology exam(s) Lab and/or radiology exams considered but not ordered:: None Interpretation Summary: I reviewed all diagnostic test results: My review of the CT head report is: No acute findings My review of the CT cervical spine report is: No cervical fracture My review of the CT lumbar spine report is: L5-S1 spinal stenosis My review of the CT thoracic spine report is: No acute findings Blood tests and urine tests are unremarkable Medications / Prescriptions Medications or Prescriptions considered but not ordered:: None Medication administrations:: No medications given through ED course. Consultations Consultation(s) initiated? (list below): No Diagnosis Differential diagnosis back pain/injury: lumbar radiculopathy, sciatica, strain of lumbar region and renal colic Most likely diagnosis given after review of the tests above:: Sciatica Admission Indicated Admission indicated?: not indicated Explain why admission is indicated or not indicated:: With no condition needing emergent intervention, there was no indication for admission. Admission Request Was there a request for admission?: No Disposition Plan Disposition Plan: Discharge Discharge Attestation Discharge Attestation: The patient and all family members were given an opportunity to ask questions and understood the discharge instructions. Discharge instructions specifically effects, indications for sooner follow up or return to the emergency department, and the expected course of current diagnosis. Patient condition: Stable Discharge Plan Plan Patient Disposition: HOME (Self Care) Prescriptions/Referrals Prescriptions/Med Rec: New acetaminophen-codeine 300-30 mg tablet 2 tab PO Q8H MDD 6 PRN (Reason: pain) Qty: 20 0RF lidocaine [Lidoderm] 5 % adhesive patch,medicated 2 patch topical QDAY PRN (Reason: pain) Qty: 30 0RF Rx Instructions: leave on most painful area for up to 12 hrs cyclobenzaprine 5 mg tablet 5 mg PO TID PRN (Reason: muscle spasm) Qty: 15 0RF No Action ferrous sulfate [Alisha-Time] 325 mg (65 mg iron) tablet 325 mg PO Q OTHER DAY Vitamin 27 mg iron- 800 mcg tablet 1 tab PO QDAY ibuprofen 600 mg tablet 600 mg PO Q6H PRN (Reason: pain) Qty: 30 0RF Referrals: FREEMAN SMITH [Primary Care Provider] - In 1 week Problem List Clinical Impression: Sciatica Patient/Caregiver Discharge Instructions Discharge Activity: activity as tolerated Education Materials: ED Sciatica Additional Instructions: Discharge Instructions from Dr. Patel: --After evaluation, we are dealing with Sciatica (same as Lumbar Radiculopathy or Spinal Stenosis) where pinched nerve is causing your symptoms.? See attached handout on sciatica. --This condition is difficult because normal pain medications don?t work very well on nerve pain. --Despite the pain, try to resume your normal chores and activities.? Because inactivity is terrible for this condition.? And activity won?t make your condition worse.? Use a cane of stick to help stand and walk.? --Use Ibuprofen and Cyclobenzaprine and Tylenol with codeine and lidocaine patches as needed.? Don't expect the pain to go away completely, hoping to take the edge off.?? --When resting and sleeping, try position (with your knees to your chest and bending forward).? This can take some pressure off the nerve and help your pain. --Apply ice or heat if helpful. --See a private doctor (outside the ER) on 10/06/2025 for further care. Ask to help you get more care not available here in the ER.? Such as MRI imaging, physical therapy, and referrals to see specialists.? Some choose to have surgery for this condition. But you need to have MRI imaging to confirm the diagnosis and assess the severity to get the best treatments. --Seek immediate medical care with paralysis in your foot, losing control of your bladder or bowels, saddle numbness (anal numbness), or with any concerns.?? Print Language: Spanish Stand Alone Forms: Viviane Award Info., Patient Portal Info Letter
--- NOTE | 2025-10-04 07:27 | XR_ITS ---
Examination: CT lumbar spine without contrast. 2-D sagittal reconstructions. 2-D coronal reconstructions. 3-D reconstructions. Date and time of exam: September 24, 2018, 2024, 0838 hours INDICATIONS: Onset lower back pain today CTDI: vol (mGy): 58.2 DLP: (mGycm): 1744 Technique: Multiple 1.25 mm axial sections of the lumbar spine without intravenous contrast have been obtained. 2-D sagittal and coronal reconstructions have been obtained. 3-D reconstructions have been obtained. Low dose protocols were performed. One or more of the following dose reduction techniques were used; automated exposure control, adjustment of the mA and/or KV according to patient size, use of iterative reconstruction technique. Findings: Satisfactory alignment lumbar vertebral bodies. No lumbar fracture. No spondylolisthesis. No lumbar disc narrowing. Lumbar pedicles, laminae, transverse and posterior spinous processes intact L5-S1 2 mm central lumbar disc bulge contiguous with the right S1 nerve root More cephalad levels unremarkable IMPRESSION: No lumbar fracture L5-S1 2 mm central lumbar disc bulge contiguous with the right S1 nerve root If low back pain persists, consider MRI lumbar spine without contrast follow-up
--- NOTE | 2025-10-04 07:27 | XR_ITS ---
Examination: CT brain head without contrast. 2-D sagittal coronal reconstructions Date and time of exam: October 04, 2025, 0832 hours INDICATIONS: Dizziness head pain numbness and paresthesias in the extremities today CTDI: vol (mGy): 51.8 DLP: (mGycm): 980 Technique: Multiple CT axial sections of the brain have been obtained, 5 mm slice thickness. Contrast has not been administered. 2-D sagittal, coronal reconstructions have been obtained Low dose protocols were performed. One or more of the following dose reduction techniques were used; automated exposure control, adjustment of the mA and/or KV according to patient size, use of iterative reconstruction technique. Findings: No significant ventricular enlargement. Intra-axial or extra-axial hemorrhage density is not seen. No mass effect or midline shift Basal cisterns are not remarkable. Fourth ventricle is midline. Cranial vault intact. Impression: Negative for acute hemorrhage, mass effect or midline shift As clinically warranted, brain MRI follow-up would best assess for demyelinating disease
--- NOTE | 2025-10-04 07:27 | XR_ITS ---
Examination: CT cervical spine without contrast 2-D sagittal reconstructions 2-D coronal reconstructions 3-D reconstructions. Exam date and time: October 04 2025, 0832 hours INDICATIONS: Dizziness, numbness in the extremities, neck pain onset today CTDI:vol (mGy) 18.7 DLP: (mGycm) 394 Technique: Multiple 2 mm axial sections of the cervical spine have been obtained. The coronal and sagittal reconstructions have been obtained. 3-D reconstructions have been obtained. Low dose protocols were performed. One or more of the following dose reduction techniques were used; automated exposure control, adjustment of the mA and/or KV according to patient size, use of iterative reconstruction technique. Findings: Axial sections demonstrate intact base of the skull. C1 exhibit satisfactory relationship to the odontoid. No acute cervical vertebral body fracture seen. Alignment posterior spinous processes satisfactory. Early degenerative disc disease C5-C6 Impression: No acute cervical fracture.
--- NOTE | 2025-10-04 07:28 | XR_ITS ---
Examination: CT thoracic spine, without contrast. 2-D sagittal reconstructions. 2-D coronal reconstructions. 3-D reconstructions. Date and time of exam: October 04, 2025, 0838 hours INDICATIONS: Onset upper back pain today CTDI: vol (mGy): 44.2 DLP: (mGycm): 1418 Technique: Multiple 1.25 mm axial sections of the thoracic spine without intravenous contrast have been obtained. 2-D sagittal and coronal reconstructions have been obtained. 3-D reconstructions have been obtained. Low dose protocols were performed. One or more of the following dose reduction techniques were used; automated exposure control, adjustment of the mA and/or KV according to patient size, use of iterative reconstruction technique. Findings: Satisfactory alignment thoracic vertebral bodies. No thoracic fracture. Thoracic pedicles, laminae, transverse and posterior spinous processes intact No focal thoracic disc protrusions IMPRESSION: Negative examination
[2025-10-04 07:47] LABS: Basophils # (Auto) 0.0 Thou/mm3 (0.0-0.2); Basophils % (Auto) 0 % (0-2.5); Eosinophils # (Auto) 0.1 Thou/mm3 (0.0-0.5); Eosinophils % (Auto) 1 % (0-10); Hematocrit 37.8 % (36.0-46.0); Hemoglobin 11.7 g/dL (12.0-16.0); Immature Granulocytes Auto 0.06 Thou/mm3 (0.00-0.00); Lymphocytes # (Auto) 2.9 Thou/mm3 (1.0-4.8); Lymphocytes % (Auto) 30 % (10-50); Mean Corpuscular HGB Conc 31.0 g/dl (31.0-37.0); Mean Corpuscular Hemoglobin 24.7 pg (25.0-35.0); Mean Corpuscular Volume 80 fL (80-100); Monocytes # (Auto) 0.5 Thou/mm3 (0.0-0.8); Monocytes % (Auto) 5 % (0-12); Neutrophils # (Auto) 6.1 Thou/mm3 (1.8-7.7); Neutrophils % (Auto) 63 % (37-80); Nucleated Red Blood Cell # 0.00 Thou/mm3 (0.00-0.00); Nucleated Red Blood Cell % 0 /100 WBC (0); Platelet Count 325 Thou/mm3 (140-440); RDW Standard Deviation 43.2 fL (36.4-46.3); Red Blood Count 4.74 Miln/mm3 (4.00-5.20); White Blood Count 9.7 Thou/mm3 (3.6-11.0)
[2025-10-04 07:55] LABS: Collection Type, Urine Clean Catch
[2025-10-04 07:58] LABS: Glucose Estimated Average 105 mg/dL (80-131); Hemoglobin A1C 5.3 % Hgb (4.8-6.0)
[2025-10-04 08:01] LABS: Bilirubin,Urine Negative (Negative); Blood,Urine Negative (Negative); Clarity,Urine Clear (Clear/Hazy); Color,Urine Lt-Yellow (Lt Yel-Yel); Culture Indicated,Urine Not Indicated; Glucose, Urine Negative (Negative); Ketones,Urine Negative (Negative); Leukocyte Esterase,Urine Negative (Negative); Nitrite,Urine Negative (Negative); PH,Urine 6.0 (5.0-7.0); Protein,Urine Negative (Neg - Trace); RBC,Urine 2 /hpf (0-3); Specific Gravity,Urine 1.030 (1.001-1.035); Squamous Epithelial Cell,Urine 8 /hpf (0-5); Urobilinogen,Urine Negative mg/dL (0.0-1.0); WBC,Urine 2 /hpf (0-5)
[2025-10-04 08:07] LABS: HCG,Qualitative Serum Negative
[2025-10-04 08:18] LABS: Alanine Aminotransferase 24 U/L (10-49); Albumin, Serum 4.8 gm/dL (3.5-5.0); Albumin/Globulin Ratio 1.7 (1.2-2.2); Alkaline Phosphatase 114 U/L (46-116); Anion Gap 10 (7-16); Aspartate Amino Transferase 21 U/L (0-34); BUN/Creatinine Ratio 18 Ratio (12-20); Bilirubin,Direct < 0.1 mg/dL (0.0-0.3); Bilirubin,Total 0.2 mg/dL (0.3-1.2); Blood Urea Nitrogen 11 mg/dL (9-23); C-Reactive Protein < 0.5 mg/dL (0.0-0.9); Calcium 9.4 mg/dL (8.3-10.6); Calcium (Corrected) 9.4 mg/dL (8.5-10.1); Carbon Dioxide 25.3 mMol/L (20.0-31.0); Chloride 106 mMol/L (98-107); Creatine Kinase 70 U/L (34-171); Creatinine (Component) 0.6 mg/dL (0.6-1.3); Estimated Creatinine Clearance 166.6 mL/min (>60); Globulin 2.8 gm/dL (2.3-3.5); Glucose 99 mg/dL (74-106); Magnesium 1.8 mg/dL (1.6-2.6); Osmolality,Calculated 280 (275-295); Potassium 3.9 mMol/L (3.4-5.1); Procalcitonin < 0.04 ng/ml (0.0-0.49); Sodium 141 mMol/L (136-145); Thyroid Stimulating Hormone 1.93 uIU/mL (0.55-4.78); Total Protein 7.6 gm/dL (5.7-8.2); eGFR > 60 See Note
[2025-10-04 11:04] LABS: Sed Rate (ESR) 34 mm/hr (0-20)
== END 2025-10-04 11:01 | disposition home or self-care (01) ==
PROVIDERS: Emergency Provider Emergency Medicine; PCP Nurse Practitioner Family
DX: M54.30 Sciatica, unspecified side (principal); M48.07 Spinal stenosis, lumbosacral region; M48.061 Spinal stenosis, lumbar region without neurogenic claudication
CPT/HCPCS: 36415; 70450; 72125; 72128; 72131; 80053; 81001; 82248; 82550; 83036; 83735; 84145; 84443; 84703; 85025; 85652; 86140; 99283

== ENCOUNTER → 2025-10-12 | Outpatient (CLI) | payer MEDICAID, SELFPAY ==
--- NOTE | 2025-10-12 13:16 | XR_ITS ---
EXAMINATION: PA lateral chest 2 views TECHNIQUE: Upright PA lateral chest 2 views Date and time: October 12, 2025, 1343 hours, comparison December 21, 2024 INDICATIONS: Lower respiratory tract infection this week. FINDINGS: Normal heart size Lungs are clear. Osseous structures are intact IMPRESSION: No active disease
== END | disposition home or self-care (01) ==
LOC: SDIM 12:32
PROVIDERS: PCP Nurse Practitioner Family; Referring Provider Nurse Practitioner Family; Visit Provider Nurse Practitioner Family
DX: J22 Unspecified acute lower respiratory infection (principal); R07.9 Chest pain, unspecified
CPT/HCPCS: 71046

== ENCOUNTER → 2025-10-17 | Outpatient (CLI) | payer OTHER, MEDICAID, SELFPAY ==
--- NOTE | 2025-10-17 15:27 | EKG_ITS ---
[facility] Test Date: 2025-10-17 Pat Name: MANOLO CUMMINGS Department: Room: - Gender: Female Weather Analyst: LITO : 1995 Requested By: FREEMAN SMITH Order Number: [id number] Reading MD: FREEMAN SMITH Measurements Intervals [place] Rate: 66 P: 58 MS: 154 QRS: 69 QRSD: 89 T: 47 QT: 426 QTc: 449 Interpretive Statements SINUS RHYTHM WITH SINUS ARRHYTHMIA No previous ECG available for comparison /[id number]
[2025-10-17 15:57] LABS: Sed Rate (ESR) 36 mm/hr (0-20)
[2025-10-17 17:16] LABS: Alanine Aminotransferase 25 U/L (10-49); Albumin, Serum 4.7 gm/dL (3.5-5.0); Albumin/Globulin Ratio 1.6 (1.2-2.2); Alkaline Phosphatase 97 U/L (46-116); Anion Gap 9 (7-16); Aspartate Amino Transferase 20 U/L (0-34); BUN/Creatinine Ratio 20 Ratio (12-20); Bilirubin,Total 0.3 mg/dL (0.3-1.2); Blood Urea Nitrogen 10 mg/dL (9-23); C-Reactive Protein 0.6 mg/dL (0.0-0.9); Calcium 9.0 mg/dL (8.3-10.6); Calcium (Corrected) 9.0 mg/dL (8.5-10.1); Carbon Dioxide 27.1 mMol/L (20.0-31.0); Chloride 106 mMol/L (98-107); Creatinine (Component) 0.5 mg/dL (0.6-1.3); Free T4 (Free Thyroxine) 1.33 ng/dL (0.89-1.76); Globulin 3.0 gm/dL (2.3-3.5); Glucose 89 mg/dL (74-106); Osmolality,Calculated 281 (275-295); Potassium 3.6 mMol/L (3.4-5.1); Sodium 142 mMol/L (136-145); Thyroid Stimulating Hormone 0.91 uIU/mL (0.55-4.78); Total Protein 7.7 gm/dL (5.7-8.2); eGFR > 60 See Note
[2025-10-18 13:22] LABS: T4 (Thyroxine) 9.3 mcg/dL (4.5-10.9)
[2025-10-24 06:37] LABS: T3,Total* 150 ng/dL (76-181); Thyroglobulin Antibodies* <1 IU/mL (< OR = 1); Thyroid Peroxidase Antibodies* <1 IU/mL (<9)
== END | disposition home or self-care (01) ==
LOC: SLAB 15:04
PROVIDERS: PCP Nurse Practitioner Family; Referring Provider Nurse Practitioner Family; Visit Provider Nurse Practitioner Family
DX: Z00.00 Encounter for general adult medical examination without abnormal findings (principal); E03.9 Hypothyroidism, unspecified; Z13.29 Encounter for screening for other suspected endocrine disorder; R07.9 Chest pain, unspecified; R00.2 Palpitations
CPT/HCPCS: 36415; 80053; 84436; 84439; 84443; 84480; 85652; 86140; 86376; 86800; 93005